=== PATIENT | female | born 1940 | race Caucasian/White ===

== ENCOUNTER 2024-04-25 14:27 | Inpatient (IN) | payer MEDICARE, BC, SELFPAY ==
[2024-04-25] VITALS (19 sets, daily range): BP systolic 99–119; BP diastolic 45–67; PULSE 54–85; RESP 14–24; TEMP 36–36.4; O2SAT 85–98; BMI 28.3; BMI 27.3
[2024-04-25 15:36] LABS: Basophils Percent Auto 0.2 % (0.0-3.0); Hematocrit 38.8 % (33.0-51.0); Hemoglobin* 12.8 gm/dL (12.0-16.0); Immature Granulocytes Pct Auto 1.1 %; Lymphocytes Percent Auto 2.9 % (20-44); Mean Corpuscular HGB Conc 33 gm/dL (32-36); Mean Corpuscular Hemoglobin 32 pg (26-34); Mean Corpuscular Volume 96 fL (80-100); Monocytes Percent Auto 4.9 % (0.0-11.0); Neutrophils Percent Auto 90.9 % (42.0-72.0); Platelet Count* 113 K/uL (140-440); RDW Coefficient of Variation % 12.2 % (11.5-15.5); Red Blood Count 4.05 m/uL (4.00-5.20); White Blood Count* 16.95 K/uL (4.50-11.00)
[2024-04-25 15:38] LABS: Lactate* 4.7 mmol/L (0.5-1.9)
[2024-04-25 15:44] LABS: Slide Review Reflex No
[2024-04-25 15:52] LABS: Albumin* 3.6 g/dL (3.3-5.0); Chloride* 101 mmol/L (96-114); Sodium* 134 mmol/L (135-149)
[2024-04-25 15:53] LABS: Potassium* 4.2 mmol/L (3.6-5.1)
[2024-04-25 15:55] LABS: Alkaline Phosphatase* 66 U/L (40-150); Anion Gap 11 mEq/L (7-15); Aspartate Amino Transferase* 234 U/L (12-35); Bilirubin Direct* 0.4 mg/dL (0.0-0.5); Bilirubin Total* 0.9 mg/dL (0.1-1.5); Blood Urea Nitrogen* 55 mg/dL (7-30); Carbon Dioxide* 22 mmol/L (20-32); Creatinine* 2.4 mg/dL (0.5-1.5); Est. Creatinine Clearance* 15.14; Estimated Glomerular Filt Rate 19 ml/min; Total Protein* 6.3 g/dL (6.0-8.3)
[2024-04-25 15:56] LABS: Alanine Aminotransferase* 46 U/L (4-35); Calcium* 9.1 mg/dL (8.4-10.6); Glucose* 147 mg/dL (60-115); Magnesium* 1.9 mg/dL (1.5-2.6)
--- NOTE | 2024-04-25 16:04 | CRLHL7_ITS ---
For Patients: As a result of the Century Cures Act, medical imaging exams and procedure reports are released immediately into your electronic medical record. You may view this report before your referring provider. If you have questions, please contact your health care provider. Indication: SEPSIS Technique: CT chest/abdomen/pelvis without IV contrast Comparison: None Findings: Chest: No thyroid nodules. No thoracic lymphadenopathy. The heart is normal in size. No pericardial effusion. Coronary artery calcifications and aortic valve and aortic and mitral annular calcifications. The thoracic aorta and pulmonary artery are normal in caliber. There is no focal airspace consolidation, pleural effusion, or pneumothorax. Trace dependent and bibasilar linear atelectatic changes. Subpleural 7 millimeter pulmonary nodule in the left lower lobe. No emphysematous or fibrotic changes. The airways are clear. Abdomen/pelvis: Well-circumscribed low-density left hepatic lesion measuring 1.7 centimeters, incompletely characterized on this exam, but likely a simple cyst. The gallbladder and biliary system are unremarkable. The spleen is unremarkable. The pancreas is without acute abnormality. Faint region of decreased attenuation in the pancreatic head/uncinate process (series number 2, image 108) measuring approximately 1.8 centimeters, incompletely characterized on this exam. No adrenal nodules. The kidneys are atrophic. Exophytic low-density lesion in the left kidney measuring approximately 1.6 centimeters (image 101), incompletely characterized on this exam. No renal calculi or hydroureteronephrosis. The uterus is unremarkable in appearance. No suspicious adnexal lesions. Moderate sized hiatal hernia. No evidence of bowel obstruction. There is questionable mild diffuse circumferential wall thickening of the rectum, which can be seen with proctitis; otherwise, no evidence of bowel inflammation throughout the remainder of the exam. No free fluid or free air. No abdominopelvic lymphadenopathy. No abdominal aortic aneurysm. Moderate calcific atherosclerosis of the aortoiliac system and its branches. Periuterine vascular calcifications. Pelvic phleboliths. Soft tissue/musculoskeletal: Soft tissues are without acute abnormality. Tiny fat containing umbilical hernia. No acute fracture or malalignment. Multilevel degenerative changes of the spine. No suspicious osseous lesions. Impression: 1. Questionable mild circumferential wall thickening of the rectum, which can be seen with proctitis; otherwise, no evidence of bowel inflammation throughout the remainder of the exam. 2. No free fluid or free air. 3. No CT evidence of an acute process involving the thorax. 4. Faint region of decreased attenuation in the pancreatic head/uncinate process (series number 2, image 108) measuring approximately 1.8 centimeters, and an exophytic low-density lesion in the left kidney measuring approximately 1.6 centimeters, both incompletely characterized on this exam. Recommend correlation with prior imaging if available; otherwise, recommend outpatient CT with pancreatic/renal protocol for further assessment. 5. Subpleural 7 millimeter pulmonary nodule in the left lower lobe, to correlate with prior imaging if available; otherwise, recommend repeat CT chest in 6-12 months. Please note that all CT scans at this facility use dose modulation, iterative reconstruction, and/or weight-based dosing when appropriate to reduce radiation dose to as low as reasonably achievable. Dictated by Moe Galloway MD @ 04/25/2024 5:01:03 PM (Electronically Signed)
[2024-04-25 16:13] LABS: Troponin I* 2.41 ng/mL (0.01-0.04)
--- NOTE | 2024-04-25 16:14 | ED.NURSE ---
Critical troponin of 2.4, MD aware.
--- NOTE | 2024-04-25 16:19 | ED.GENADULT ---
HPI - General Adult General Chief complaint: Weakness Stated complaint: Weakness, slurred speech Time Seen by Provider: 04/25/24 14:44 Source: patient Mode of arrival: ambulatory Limitations: no limitations History of Present Illness HPI narrative: 84-year-old female presenting today complaining of weakness. Patient states that since Keysha she has been feeling weaker than normal. Last night she could not get out of her recliner and required assistance from her son who she lives with. This is very unusual for her. She states that for the last 3 days she has been having cramping in both elbows and both knees. This comes and goes. She denies any fevers or chills. She states that she has had very little appetite for the last 3 days. She denies chest pain, abdominal pain or shortness of breath. She denies headache. She denies of focal neurologic deficit. She states that her children told her that she was ?out of it with increased confusion. Patient states that she does not feel increased confusion. She denies changes in speech. She did denies word-finding difficulty. She denies changes in her vision or hearing. She has a walker at home which she has been using but feels that does require more effort on her part than normal. She denies diarrhea or constipation. She denies urinary symptoms such as increased frequency, urgency or dysuria. She denies any skin rashes. Past medical history significant for hypertension, hyperlipidemia, impaired fasting glucose.. Patient takes atenolol and lisinopril. Related Data Home Medications ?Medication ?Instructions ?Recorded ?Confirmed atenolol 50 mg tablet 50 mg PO DAILY 04/25/24 04/25/24 lisinopril 20 mg tablet 20 mg PO DAILY 04/25/24 04/25/24 Allergies Allergy/AdvReac Type Severity Reaction Status Date / Time No Known Drug Allergies Allergy Verified 04/25/24 16:12 Review of Systems Status of ROS: Reports: 10 or more systems reviewed and unremarkable except as noted in History and below [facility] Medical History (Updated 04/26/24 @ 11:09 by Emmy Jameson PA-C) Overweight ?E66.3 - Overweight (ICD-10) Hyperlipidemia ?E78.5 - Hyperlipidemia, unspecified (ICD-10) Impaired fasting glucose ?R73.01 - Impaired fasting glucose (ICD-10) Essential hypertension ?I10 - Essential (primary) hypertension (ICD-10) Ulcerative colitis ?K51.90 - Ulcerative colitis, unspecified, without complications (ICD-10) Surgical History Status post colonoscopy ?Z98.890 - Other specified postprocedural states (ICD-10) Status post tubal ligation ?Z98.51 - Tubal ligation status (ICD-10) S/P tonsillectomy ?Z90.89 - Acquired absence of other organs (ICD-10) Status post cataract extraction ?Z98.49 - Cataract extraction status, unspecified eye (ICD-10) Family History Sister Breast cancer Osteoporosis Mother High blood pressure Social History What is your current living situation?: I presently have a place to live Problems where you live: no known problems Problems where you live details: none In the past 12 months, utilities in danger of being shut off: no In past 12 months, lack of transportation kept you from medical appts, meetings, work, or getting things needed for daily living: no In the past 12 mos, have been you worried that your food would run out before you had money to buy more?: never true In the past 12 mos, the food you bought just didn't last and you didn't have money to buy more?: never true Highest level of school completed/degree received: high school graduate Smoking Status: Never smoker Do you use any of these nicotine containing products: None Second hand tobacco smoke exposure: Yes How often do you have a drink containing alcohol: monthly or less AUDIT-C Alcohol total score: 1 Non-prescribed substance use: denies use Caffeine: Yes (1 cup of coffee a day) How often does anyone, including family, friends and others, physically hurt you: never How often does anyone, including family, friends and others, insult or talk down to you: never How often does anyone, including family, friends and others, threaten you with harm: never How often does anyone, including family, friends and others, scream or curse at you: never service: No Exam Narrative: Exam Narrative: Elderly, well-developed patient in no acute distress. Alert and oriented. Answers questions appropriately. Mood and affect are appropriate. Thoughts are goal oriented and rational. No tangential or magical thinking noted. Patient speaks in full sentences without needing to catch her breath. HEENT: Normocephalic atraumatic. Pupils are equally round reactive to light. Extraocular muscles are intact. Conjunctivae are moist without any icterus noted. Moist mucous membranes. Posterior pharynx is normal. Neck is soft without any lymphadenopathy or thyromegaly. No masses are appreciated. Cardiovascular: Heart is regular rate and rhythm S1 and S2 are present without any murmurs. Lungs: Clear to auscultation bilaterally no wheezes rhonchi or rales are appreciated. Patient takes deep breaths without any discomfort. Abdomen: Soft and nontender nondistended with normal bowel sounds. Extremities: Bilateral lower extremities are without edema. Skin: Well perfused without any obvious rashes. Const: Vital Signs, click to edit/add: Vital Signs - 24 hr 04/25/24 14:40 04/25/24 15:35 04/25/24 15:43 Temperature 97.3 F L Pulse Rate 58 L Pulse Rate [Pulse Oximeter] 85 Respiratory Rate 18 19 Blood Pressure 116/60 Blood Pressure [Le ft Upper Arm] 102/67 Pulse Oximetry 92 96 96 Oxygen Delivery Me thod Room Air Room Air 04/25/24 15:46 04/25/24 16:00 04/25/24 16:02 Temperature Pulse Rate 67 59 L 54 L Pulse Rate [Pulse Oximeter] Respiratory Rate 14 Blood Pressure 110/45 L Blood Pressure [Le ft Upper Arm] Pulse Oximetry 98 96 94 Oxygen Delivery Me thod Room Air 04/25/24 16:31 04/25/24 16:32 Temperature Pulse Rate Pulse Rate [Pulse Oximeter] Respiratory Rate Blood Pressure 102/54 L 103/51 L Blood Pressure [Le ft Upper Arm] Pulse Oximetry Oxygen Delivery Me thod Course Course ED Course: EKG, read by me, shows normal sinus rhythm with a prolonged QT, pulse 69. With some BC shows an elevated white cell count almost 17,000, platelet count is 113. Sodium slightly low 134, normal potassium. BUN and creatinine elevated at 55 and 2.4 respectively. Baseline creatinine around 1. Lactate elevated at 4.7. LFTs elevated with an AST of 234 an ALT of 46. Normal alkaline phosphatase. Troponin is markedly elevated at 2.41. CK is markedly elevated. BNP is markedly elevated. Chest, abdomen, pelvis CT without any clear reason for her symptoms. Incidental findings include lesions of the pancreas, kidneys and the pulmonary nodule. All discussed with the patient. At this time patient is already received 500 mL of normal saline. Will start another 500 mL over an hour. Fluid resuscitation is slow because of patient's age, elevated BNP and concern for fluid overload. Unclear what her ejection fraction is. She is hemodynamically stable at this time and mentating well. Blood cultures were also drawn. Patient will be started on vancomycin and Zosyn. Mclean catheter were also be placed as patient has not had any urine output since she has been here. Discussed patient with Dr. Owens who accepts the patient for admission. Vital Signs Vital signs: Initial Vital Signs Temperature 97.3 F L 04/25/24 14:40 Temperature Source Temporal Artery Scan 04/25/24 14:40 Pulse Rate 85 04/25/24 14:40 Respiratory Rate 18 04/25/24 14:40 Blood Pressure 102/67 04/25/24 14:40 Blood Pressure Mean 78 04/25/24 14:40 Pulse Oximetry 92 04/25/24 14:40 Oxygen Delivery Method Room Air 04/25/24 14:40 Vital Signs Temperature 97.3 F L 04/25/24 14:40 Pulse Rate 85 04/25/24 14:40 Respiratory Rate 18 04/25/24 14:40 Blood Pressure 102/67 04/25/24 14:40 Pulse Oximetry 92 04/25/24 14:40 Oxygen Delivery Method Room Air 04/25/24 14:40 Temperature 97.7 F 04/26/24 15:01 Pulse Rate 64 04/26/24 15:29 Respiratory Rate 20 04/26/24 15:01 Blood Pressure 127/68 04/26/24 15:01 Pulse Oximetry 98 04/26/24 15:01 Oxygen Delivery Method Room Air 04/26/24 15:01 Medications Administered Medications: Generic Name Dose Route Start Last Admin Trade Name Freq PRN Reason Stop Dose Admin Acetaminophen 650 mg 04/25/24 18:31 04/26/24 20:07 Acetaminophen 325 Mg Tablet PO 650 mg Q6H PRN Administration Sodium Chloride 1,000 mls @ 125 mls/hr 04/25/24 18:30 04/26/24 20:20 0.9 % Sodium Chloride 1000 Ml IV 125 mls/hr .Q8H SIN Administration Piperacillin Sod/Tazobactam 100 mls @ 200 mls/hr 04/26/24 02:00 04/26/24 18:33 Sod 2.25 gm/ Sodium Chloride IVPB Infused Q8H SIN Infusion Melatonin 3 mg 04/25/24 18:31 04/26/24 20:07 Melatonin 3 Mg Tablet PO 3 mg HS PRN Administration Oxycodone HCl 2.5 mg 04/25/24 18:31 04/26/24 20:07 Oxycodone 5 Mg Tablet PO 2.5 mg Q4H PRN Administration Pain Sodium Chloride 5 ml 04/25/24 21:00 04/26/24 08:59 Sodium Chloride 0.9 % (Flush) 10 Ml Syringe IVF Not Given BID SIN Discontinued Medications Generic Name Dose Route Start Last Admin Trade Name Freq PRN Reason Stop Dose Admin Sodium Chloride 500 mls @ 500 mls/hr 04/25/24 15:07 04/25/24 20:28 0.9 % Sodium Chloride 500 Ml IV 04/25/24 16:06 Infused .Q1H ONE Infusion Sodium Chloride 1,000 mls @ 500 mls/hr 04/25/24 17:08 04/25/24 21:16 0.9 % Sodium Chloride 1000 Ml IV 04/25/24 19:07 Infused .Q2H SIN Infusion Vancomycin/PEG/NADA/Lysine/Water 1.5 gm in 300 mls @ 200 mls/hr 04/25/24 18:30 04/25/24 21:49 Vancomycin 1.5 Gm/300 Ml IVPB 04/25/24 19:59 Infused ONCE ONE Infusion Protocol Piperacillin Sod/Tazobactam 100 mls @ 200 mls/hr 04/25/24 18:30 04/25/24 20:27 Sod 3.375 gm/ Sodium Chloride IVPB 04/25/24 18:59 Infused ONCE ONE Infusion Medical Decision Making MDM Narrative Medical decision making narrative: 84-year-old female with sepsis of unclear etiology. Patient also presents with acute renal failure, likely cardiac demand ischemia. Patient will be admitted at this time. Lab Data Lab results reviewed: Yes I reviewed the patient's lab results Labs: Lab Results 04/25/24 04/25/2424 Range/Units 15:08 15:30 17:40 WBC 16.95 H (4.50-11.00) K/uL RBC 4.05 (4.00-5.20) m/uL Hgb 12.8 (12.0-16.0) gm/dL Hct 38.8 (33.0-51.0) % MCV 96 (80-100) fL MCH 32 (26-34) pg MCHC 33 (32-36) gm/dL RDW Coeff of Jayla 12.2 (11.5-15.5) % Plt Count 113 L (140-440) K/uL Neut % (Auto) 90.9 H (42.0-72.0) % Lymph % (Auto) 2.9 L (20-44) % [place] % (Auto) 4.9 (0.0-11.0) % Eos % (Auto) 0.0 (0.0-7.0) % Baso % (Auto) 0.2 (0.0-3.0) % Neut # (Auto) 15.40 H (1.7-7.0) K/uL Lymph # (Auto) 0.50 L (0.90-2.90) K/uL [place] # (Auto) 0.80 (0.00-0.90) K/UL Eos # (Auto) 0.00 (0.00-0.50) K/uL Baso # (Auto) 0.00 (0.00-0.30) K/uL Abs Immat Gran (auto) 0.20 (0.00-0.30) K/uL Imm/Tot Granulo (auto) 1.1 % ESR 49 H (2-20) mm/hr Sodium 134 L (135-149) mmol/L Potassium 4.2 (3.6-5.1) mmol/L Chloride 101 (96-114) mmol/L Carbon Dioxide 22 (20-32) mmol/L Anion Gap 11 (7-15) mEq/L BUN 55 H (7-30) mg/dL Creatinine 2.4 H (0.5-1.5) mg/dL Estimated Creat Clear 15.14 Estimated GFR 19 ml/min Glucose 147 H (60-115) mg/dL Lactate 4.7 H* (0.5-1.9) mmol/L Calcium 9.1 (8.4-10.6) mg/dL Magnesium 1.9 (1.5-2.6) mg/dL Total Bilirubin 0.9 (0.1-1.5) mg/dL Direct Bilirubin 0.4 (0.0-0.5) mg/dL AST 234 H (12-35) U/L ALT 46 H (4-35) U/L Alkaline Phosphatase 66 (40-150) U/L Total Creatine Kinase 21694 H (41-117) U/L Troponin I 2.41 H* (0.01-0.04) ng/mL C-Reactive Protein 33.4 H (0.5-1.0) mg/dL NT-Pro-B Natriuret Pep 95360 pg/mL Total Protein 6.3 (6.0-8.3) g/dL Albumin 3.6 (3.3-5.0) g/dL TSH 2.900 (0.270-4.20) uIU/mL Urine Color Yellow (Yellow) Urine Appearance Clear (Clear) Urine pH 5.5 (5.0-8.5) Ur Specific [place] 1.025 (1.000-1.030) Urine Protein 2+ A (Negative) Urine Glucose (UA) Negative (Negative) Urine Ketones Negative (Negative) Urine Blood 3+ A (Negative) Urine Nitrite Positive A (Negative) Urine Bilirubin 1+ A (Negative) Urine Urobilinogen 1.0 (0.2-1.0) Ur Leukocyte Esterase 3+ A (Negative) Urine RBC 0-2 (0-2) Urine WBC 25-50 A (0-5) Urine WBC Clumps Few A (None) Ur Squamous Epith Cells None (None-Few) Amorphous Sediment Moderate A (None) Urine Bacteria Moderate A (None) SARS-CoV-2 (PCR) Negative SARS-CoV-2 (Negative) Influenza Type A (PCR) Negative PCR FLU A (Negative) Influenza Type B (PCR) Negative PCR FLU B (Negative) RSV (PCR) Negative PCR RSV (Negative) Imaging Data CT Chest/Ab/Pelvis: Attestation: I have reviewed the pertinent imaging results. Radiologist's impression: CT chest/abdomen/pelvis without IV contrast Comparison: None Findings: Chest: No thyroid nodules. No thoracic lymphadenopathy. The heart is normal in size. No pericardial effusion. Coronary artery calcifications and aortic valve and aortic and mitral annular calcifications. The thoracic aorta and pulmonary artery are normal in caliber. There is no focal airspace consolidation, pleural effusion, or pneumothorax. Trace dependent and bibasilar linear atelectatic changes. Subpleural 7 millimeter pulmonary nodule in the left lower lobe. No emphysematous or fibrotic changes. The airways are clear. Abdomen/pelvis: Well-circumscribed low-density left hepatic lesion measuring 1.7 centimeters, incompletely characterized on this exam, but likely a simple cyst. The gallbladder and biliary system are unremarkable. The spleen is unremarkable. The pancreas is without acute abnormality. Faint region of decreased attenuation in the pancreatic head/uncinate process (series number 2, image 108) measuring approximately 1.8 centimeters, incompletely characterized on this exam. No adrenal nodules. The kidneys are atrophic. Exophytic low-density lesion in the left kidney measuring approximately 1.6 centimeters (image 101), incompletely characterized on this exam. No renal calculi or hydroureteronephrosis. The uterus is unremarkable in appearance. No suspicious adnexal lesions. Moderate sized hiatal hernia. No evidence of bowel obstruction. There is questionable mild diffuse circumferential wall thickening of the rectum, which can be seen with proctitis; otherwise, no evidence of bowel inflammation throughout the remainder of the exam. No free fluid or free air. No abdominopelvic lymphadenopathy. No abdominal aortic aneurysm. Moderate calcific atherosclerosis of the aortoiliac system and its branches. Periuterine vascular calcifications. Pelvic phleboliths. Soft tissue/musculoskeletal: Soft tissues are without acute abnormality. Tiny fat containing umbilical hernia. No acute fracture or malalignment. Multilevel degenerative changes of the spine. No suspicious osseous lesions. Impression: 1. Questionable mild circumferential wall thickening of the rectum, which can be seen with proctitis; otherwise, no evidence of bowel inflammation throughout the remainder of the exam. 2. No free fluid or free air. 3. No CT evidence of an acute process involving the thorax. 4. Faint region of decreased attenuation in the pancreatic head/uncinate process (series number 2, image 108) measuring approximately 1.8 centimeters, and an exophytic low-density lesion in the left kidney measuring approximately 1.6 centimeters, both incompletely characterized on this exam. Recommend correlation with prior imaging if available; otherwise, recommend outpatient CT with pancreatic/renal protocol for further assessment. 5. Subpleural 7 millimeter pulmonary nodule in the left lower lobe, to correlate with prior imaging if available; otherwise, recommend repeat CT chest in 6-12 months. ECG Data Attestation: I personally reviewed and interpreted this ECG as follows: Discharge Plan Discharge Clinical Impression: Sepsis, Demand ischemia, Acute renal failure Patient Disposition: Admitted As Observation Condition: Guarded
[2024-04-25 16:28] LABS: NT Pro B Type NatriureticPept* 16800 pg/mL
[2024-04-25 16:41] LABS: Creatine Kinase* 12634 U/L (41-117)
[2024-04-25] MEDS: 0.9 % SODIUM CHLORIDE 500 ML 500 ML IV (16:52)
[2024-04-25 16:59] LABS: Erythrocyte SedimentationRate* 49 mm/hr (2-20)
[2024-04-25 17:16] LABS: PCR FLU A Negative PCR FLU A (Negative); PCR FLU B Negative PCR FLU B (Negative); PCR RSV Negative PCR RSV (Negative); SARS PCR* Negative SARS-CoV-2 (Negative)
[2024-04-25 17:48] LABS: Appearance Urine Clear (Clear); Bilirubin Urine 1+ (Negative); Blood Urine 3+ (Negative); Color Urine Yellow (Yellow); Glucose Urine Negative (Negative); Ketones Urine Negative (Negative); Leukocyte Esterase Urine 3+ (Negative); Nitrite Urine Positive (Negative); Protein Urine 2+ (Negative); Specific Gravity Urine 1.025 (1.000-1.030); pH Urine 5.5 (5.0-8.5)
[2024-04-25 18:13] LABS: Amorphous Sediment Urine Moderate; Bacteria Urine Moderate; RBC Urine 0-2 (0-2); WBC Clumps Urine Few; WBC Urine 25-50 (0-5)
--- NOTE | 2024-04-25 18:34 | PM.IMHP1 ---
Hospitalist- H&P: HPI History of Present Illness Date Seen: 04/25/24 Chief complaint: Weakness Narrative: Alley León is a 84 year old woman presents to the emergency department accompanied by her son today with complaint of increased weakness. She indicates that for the last 3 days she has been gradually feeling increasingly weak. This has progressed such that last night she was able to get out of her recliner without assistance. Has been having more cramping of her lower extremities as well. Denies fevers, rigors, diaphoresis. Denies dysuria, urgency, frequency, hematuria. Denies diarrhea. Denies any skin rashes or ulcers or lesions. Needed to get up to go to the bathroom earlier today but was too weak to get out of the recliner. Slid out of the recliner to the floor. Attempted to crawl to the bathroom which is only roughly 15-20 feet away. Claims that she was on the floor for about 2 hours trying to reach the bathroom but was too weak to the reach it. About 2 hours after she slid herself out of the recliner her son came home from work. After conferring with her son he decided to bring her in for further assessment. Denies any trauma or injury. Denies loss of consciousness or syncope. Denies nausea or vomiting. Denies chest heaviness, pressure, tightness, or pain. Denies dyspnea at rest, paroxysmal nocturnal dyspnea, orthopnea. Denies cough or URI symptoms. Denies confusion. Has been requiring the use of her walker more recently due to the increased weakness. Review of Systems Status of ROS: Reports: 10 or more systems reviewed and unremarkable except as noted in History and below Narrative: As noted above. Additionally describes a sense of myalgias and arthralgias of bilateral lower extremities for the last 24 hours. Denies focal motor neurologic deficits. No recent travel, trauma, or blood loss of any sort. Designates her son, Shlomo, as her healthcare spokes person in the event she is not able to speak on her own behalf in regard to her health care. Also she requests DNR DNI resuscitation status in the event of cardiopulmonary demise. [facility] Medical History Overweight ?E66.3 - Overweight (ICD-10) Hyperlipidemia ?E78.5 - Hyperlipidemia, unspecified (ICD-10) Impaired fasting glucose ?R73.01 - Impaired fasting glucose (ICD-10) Essential hypertension ?I10 - Essential (primary) hypertension (ICD-10) Ulcerative colitis ?K51.90 - Ulcerative colitis, unspecified, without complications (ICD-10) Surgical History Status post colonoscopy ?Z98.890 - Other specified postprocedural states (ICD-10) Status post tubal ligation ?Z98.51 - Tubal ligation status (ICD-10) S/P tonsillectomy ?Z90.89 - Acquired absence of other organs (ICD-10) Status post cataract extraction ?Z98.49 - Cataract extraction status, unspecified eye (ICD-10) Family History Sister Breast cancer Osteoporosis Mother High blood pressure Social History What is your current living situation?: I presently have a place to live Problems where you live: no known problems Problems where you live details: none In the past 12 months, utilities in danger of being shut off: no In past 12 months, lack of transportation kept you from medical appts, meetings, work, or getting things needed for daily living: no In the past 12 mos, have been you worried that your food would run out before you had money to buy more?: never true In the past 12 mos, the food you bought just didn't last and you didn't have money to buy more?: never true Highest level of school completed/degree received: high school graduate Smoking Status: Never smoker Do you use any of these nicotine containing products: None Second hand tobacco smoke exposure: Yes How often do you have a drink containing alcohol: monthly or less AUDIT-C Alcohol total score: 1 Non-prescribed substance use: denies use Caffeine: Yes (1 cup of coffee a day) How often does anyone, including family, friends and others, physically hurt you: never How often does anyone, including family, friends and others, insult or talk down to you: never How often does anyone, including family, friends and others, threaten you with harm: never How often does anyone, including family, friends and others, scream or curse at you: never service: No Meds Home Medications and Allergies Home Medications ?Medication ?Instructions ?Recorded ?Confirmed ?Type atenolol 50 mg tablet 50 mg PO DAILY 04/25/24 04/25/24 History lisinopril 20 mg tablet 20 mg PO DAILY 04/25/24 04/25/24 History Allergies Allergy/AdvReac Type Severity Reaction Status Date / Time No Known Drug Allergies Allergy Verified 04/25/24 16:12 Exam Narrative: Exam Narrative: Examined patient in the emergency department. Appears comfortable. Vision and hearing are adequate. Alert and oriented x3. Friendly and cooperative. External auditory canals and tympanic membranes are normal. Midline nasal septum. Dentition fair repair. Dry buccal mucosa. No icterus or conjunctival injection. Conjugate gaze. Cranial nerves 3 through 12 grossly normal. No focal motor neurologic deficits. Generalize lower extremity weakness. Midline trachea. Neck is supple. No head neck lymphadenopathy. Lungs are clear to auscultation without wheezing, rhonchi, rales. Chest wall excursions are full. No CVA tenderness. Heart tones with regular rhythm, normal S1-S2. No gallops or rubs. Systolic murmur. PMI not laterally displaced. Abdomen with active bowel sounds, soft, nontender. Trace lower extremity edema. Urine is cream colored. Positive nitrate. Positive leukocyte esterase. Positive white blood cells. Const: Vital Signs, click to edit/add: Vital Signs - 24 hr 04/25/24 14:40 04/25/24 15:35 04/25/24 15:43 Temperature 97.3 F L Pulse Rate 58 L Pulse Rate [Pulse Oximeter] 85 Respiratory Rate 18 19 Blood Pressure 116/60 Blood Pressure [Le ft Arm] Blood Pressure [Le ft Upper Arm] 102/67 Pulse Oximetry 92 96 96 Oxygen Delivery Me thod Room Air Room Air 04/25/24 15:46 04/25/24 16:00 04/25/24 16:02 Temperature Pulse Rate 67 59 L 54 L Pulse Rate [Pulse Oximeter] Respiratory Rate 14 Blood Pressure 110/45 L Blood Pressure [Le ft Arm] Blood Pressure [Le ft Upper Arm] Pulse Oximetry 98 96 94 Oxygen Delivery Me thod Room Air 04/25/24 16:31 04/25/24 16:32 04/25/24 17:01 Temperature Pulse Rate Pulse Rate [Pulse Oximeter] Respiratory Rate Blood Pressure 102/54 L 103/51 L 101/51 L Blood Pressure [Le ft Arm] Blood Pressure [Le ft Upper Arm] Pulse Oximetry Oxygen Delivery Me thod 04/25/24 17:07 04/25/24 17:15 04/25/24 17:30 Temperature Pulse Rate 60 67 69 Pulse Rate [Pulse Oximeter] Respiratory Rate Blood Pressure Blood Pressure [Le ft Arm] Blood Pressure [Le ft Upper Arm] Pulse Oximetry 88 85 L 90 Oxygen Delivery Me thod 04/25/24 17:32 04/25/24 17:45 04/25/24 18:00 Temperature Pulse Rate 67 69 67 Pulse Rate [Pulse Oximeter] Respiratory Rate Blood Pressure 99/63 Blood Pressure [Le ft Arm] Blood Pressure [Le ft Upper Arm] Pulse Oximetry [address] 04/25/24 18:16 Temperature 97 F L Pulse Rate Pulse Rate [Pulse Oximeter] 61 Respiratory Rate 22 Blood Pressure Blood Pressure [Le ft Arm] 100/57 L Blood Pressure [Le ft Upper Arm] Pulse Oximetry [address] [facility] Hospitalist - H&P: Result Labs Labs: Short CBC 04/25/24 Range/Units 15:30 WBC 16.95 H (4.50-11.00) K/uL Hgb 12.8 (12.0-16.0) gm/dL Hct 38.8 (33.0-51.0) % Plt Count 113 L (140-440) K/uL BMP 04/25/24 15:30 Sodium 134 L Potassium 4.2 Chloride 101 Carbon Dioxide 22 BUN 55 H Creatinine 2.4 H Glucose 147 H Calcium 9.1 Cardiac Enzymes 04/25/24 Range/Units 15:30 Total Creatine Kinase 85472 H (41-117) U/L Troponin I 2.41 H* (0.01-0.04) ng/mL Liver Function 04/25/24 Range/Units 15:30 Total Bilirubin 0.9 (0.1-1.5) mg/dL Direct Bilirubin 0.4 (0.0-0.5) mg/dL AST 234 H (12-35) U/L ALT 46 H (4-35) U/L Alkaline Phosphatase 66 (40-150) U/L Albumin 3.6 (3.3-5.0) g/dL Urine 04/25/24 Range/Units 17:40 Urine Color Yellow (Yellow) Urine Appearance Clear (Clear) Urine pH 5.5 (5.0-8.5) Ur Specific [place] 1.025 (1.000-1.030) Urine Protein 2+ A (Negative) Urine Glucose (UA) Negative (Negative) Imaging CT Chest/Ab/Pelvis: Radiologist's impression: 1. Questionable mild circumferential wall thickening of the rectum, which can be seen with proctitis; otherwise, no evidence of bowel inflammation throughout the remainder of the exam. 2. No free fluid or free air. 3. No CT evidence of an acute process involving the thorax. 4. Faint region of decreased attenuation in the pancreatic head/uncinate process (series number 2, image 108) measuring approximately 1.8 centimeters, and an exophytic low-density lesion in the left kidney measuring approximately 1.6 centimeters, both incompletely characterized on this exam. Recommend correlation with prior imaging if available; otherwise, recommend outpatient CT with pancreatic/renal protocol for further assessment. 5. Subpleural 7 millimeter pulmonary nodule in the left lower lobe, to correlate with prior imaging if available; otherwise, recommend repeat CT chest in 6-12 months. Assessment and Plan Assessment and plan (1) Sepsis: Problem comment: -SOFA score 5. NEWS2 score 4 P -blood culture and urine culture obtained -likely has UTI -IV fluids, single dose of piperacillin with tazobactam 3.375 g and single dose of vancomycin 1.5 g, then piperacillin 2.5 g IV q.8 hours to reflect decreased kidney function Status: Acute (2) Acute renal failure: Problem comment: -baseline creatinine of 1 with current creatinine 2.4 -likely due to acute rhabdomyolysis -avoid nephrotoxins -urethral catheter, IV fluids, monitor labs -urethral catheter in place, measure I's and O's, daily weight Status: Acute (3) UTI (urinary tract infection) with pyuria: Problem comment: -decreased urine output with cream colored urine with nitrites, leukocyte esterase, white blood cells -urine culture obtained -see entry under sepsis above Status: Acute (4) Demand ischemia: Problem comment: -trop I elevated at 0.14 with normal electrocardiogram without evidence of ischemia or infarction -monitor on tele, serial EKG, serial trop I, address likely culprit cause of sepsis and UTI Status: Acute (5) Rhabdomyolysis: Problem comment: -likely due to patient being on the floor for 2+ hours -IV fluids, monitor renal function panel Status: Acute (6) Lactic acidosis: Problem comment: -lactate elevated at 4.7 -IV fluids and monitor lactate -treat underlying UTI and sepsis Status: Acute (7) Leukocytosis: Problem comment: -WBC 17, monitor with treatment Status: Acute (8) Thrombocytopenia: Problem comment: -platelet count 113, monitor with treatment Status: Acute (9) Abnormal AST and ALT: Problem comment: -monitor with treatment Status: Acute Plan 1. Reviewed impression with patient and recommendations 2. Answered her questions 3. Patient agreeable with above stated plans and recommendations Total Time Spent Total Time Spent: 70 minutes
[2024-04-25] MEDS: PIPERACILLIN/TAZOBACTAM 3.375 GM in 0.9 % SODIUM CHLORIDE Mini-bag 100 ML IVPB (18:52)
[2024-04-25 19:05] LABS: C Reactive Protein* 33.4 mg/dL (0.5-1.0)
[2024-04-25] MEDS: 0.9 % SODIUM CHLORIDE 1000 ml 1,000 ML 500 ML IV ×2 (19:14→21:46)
--- NOTE | 2024-04-25 19:29 | PC.NURSE ---
End of Shift: Patient arrived to the floor 1815, alert and oriented x3. Patient vitally stable, lungs clear, BS WNL, IV currently running Abx and bolus. Patient denies pain on admission. Patient 1 assist/walker. Mclean intact and draining straw with sediment/cloudy. Patient given soup and jello to eat.
[2024-04-25] MEDS: VANCOMYCIN 1.5 GM/300 ML 1.5 GM/300 ML PIGGYBACK IVPB (20:05)
[2024-04-25 20:19] LABS: HCO3 VBG 23 mmol/L (21-28); Lactate* 2.6 mmol/L (0.5-1.9); PCO2 VBG 40 mmHG (40-50); PO2 VBG 44.5 mmHG (25-47); pH VBG 7.376 (7.32-7.43)
[2024-04-25 20:55] LABS: Troponin I* 1.23 ng/mL (0.01-0.04)
--- NOTE | 2024-04-25 23:38 | PC.NURSE ---
[id number]: Pt pleasant, alert, oriented and vitally stable. Pt has mosley cath in place, draining appropriately, though urine has a cloudy appearance and strong smell. Several attempts for a second IV were unsuccessful, staff attempted to wrap arms in warm blankets to stimulate veins with no success. Pt states there is pain with movement starting in elbows and radiating down to calf area. Pt in bed, appears to be resting, call light within reach. ?
[2024-04-26] VITALS (12 sets, daily range): BP systolic 101–138; BP diastolic 54–71; PULSE 60–82; RESP 14–20; TEMP 36.2–37; O2SAT 20–98
[2024-04-26] MEDS: PIPERACILLIN/TAZOBACTAM 2.25 GM in 0.9 % SODIUM CHLORIDE Mini-bag 100 ML IVPB ×3 (01:53→17:44)
[2024-04-26] MEDS: MELATONIN 3 MG TABLET PO ×2 (02:06→20:07)
[2024-04-26] MEDS: ACETAMINOPHEN 325 MG TABLET 650 MG PO ×4 (02:06→20:07)
[2024-04-26 07:01] LABS: HCO3 VBG 20 mmol/L (21-28); Lactate* 0.9 mmol/L (0.5-1.9); PCO2 VBG 34 mmHG (40-50); PO2 VBG 83.1 mmHG (25-47); pH VBG 7.368 (7.32-7.43)
--- NOTE | 2024-04-26 07:09 | PC.NURSE ---
End of shift [id number] ? Pt alert, oriented to self, time, place, and situation. Observed to sleep during majority of shift. Pt reported pain ?all over? but was unable to rate on 1-10 scale. Medication given per MAR with pt indicating tolerating pain and sleeping. Pt not up from bed during shift. Mclean catheter noted to be patent and draining. Tolerating RA and regular fluids. Appears to be resting comfortably in bed at end of shift with call light within reach. ?
[2024-04-26 07:13] LABS: Basophils Absolute Auto 0.01 K/uL (0.00-0.30); Basophils Percent Auto 0.1 % (0.0-3.0); Hematocrit 32.6 % (33.0-51.0); Hemoglobin* 10.6 gm/dL (12.0-16.0); Immature Granulocytes Abs Auto 0.08 K/uL (0.00-0.30); Immature Granulocytes Pct Auto 0.8 %; Lymphocytes Percent Auto 4.4 % (20-44); Mean Corpuscular HGB Conc 33 gm/dL (32-36); Mean Corpuscular Hemoglobin 32 pg (26-34); Mean Corpuscular Volume 97 fL (80-100); Monocytes Percent Auto 6.8 % (0.0-11.0); Neutrophils Percent Auto 87.9 % (42.0-72.0); Platelet Count* 89 K/uL (140-440); RDW Coefficient of Variation % 12.4 % (11.5-15.5); Red Blood Count 3.37 m/uL (4.00-5.20)
[2024-04-26 07:18] LABS: Slide Review Reflex No
[2024-04-26 07:29] LABS: Chloride* 108 mmol/L (96-114); Potassium* 3.7 mmol/L (3.6-5.1); Sodium* 134 mmol/L (135-149)
[2024-04-26 07:31] LABS: Cholesterol* 113 mg/dL (90-199)
[2024-04-26 07:32] LABS: Anion Gap 7 mEq/L (7-15); Blood Urea Nitrogen* 55 mg/dL (7-30); Carbon Dioxide* 19 mmol/L (20-32); Creatinine* 1.8 mg/dL (0.5-1.5); Est. Creatinine Clearance* 20.19; Estimated Glomerular Filt Rate 27 ml/min
[2024-04-26 07:33] LABS: Calcium* 7.6 mg/dL (8.4-10.6); Glucose* 105 mg/dL (60-115); HDL Cholesterol* 27 mg/dL (>=50); LDL Cholesterol Calculated 47 mg/dL (<100); Magnesium* 1.8 mg/dL (1.5-2.6); Phosphorus* 3.1 mg/dL (2.5-4.5); Triglycerides* 193 mg/dL (40-149)
[2024-04-26 07:43] LABS: NT Pro B Type NatriureticPept* 5920 pg/mL
[2024-04-26 07:44] LABS: Troponin I* 0.91 ng/mL (0.01-0.04)
--- NOTE | 2024-04-26 07:48 | P.IMPN_ITS ---
Progress Note: A&P Assessment and plan (1) Sepsis: Problem details: -SOFA score 5. NEWS2 score 4 P -blood culture x1 growing Gram-positive cocci in chains. Repeat BC ordered for 04/27. UC pending -likely has UTI -IV fluids, single dose of piperacillin with tazobactam 3.375 g and single dose of vancomycin 1.5 g, then piperacillin 2.5 g IV q.8 hours to reflect decreased kidney function -continue vancomycin, renally dosed, given positive blood culture x1 Status: Acute (2) Acute renal failure: Problem details: -baseline creatinine of 1 with current creatinine 2.4 -likely due to acute rhabdomyolysis -avoid nephrotoxins. Hold Lisinopril -urethral catheter, IV fluids, monitor labs -urethral catheter in place, measure I's and O's, daily weight Down trending, 1.8, continue to monitor Status: Acute (3) UTI (urinary tract infection) with pyuria: Problem details: -decreased urine output with cream colored urine with nitrites, leukocyte esterase, white blood cells -urine culture pending -continue Zosyn, renally dosed Status: Acute (4) Demand ischemia: Problem details: -trop I elevated at 2.41 with normal electrocardiogram without evidence of ischemia or infarction -monitor on tele, serial EKG, serial trop I, address likely culprit cause of sepsis and UTI -troponins 2.41 ->1.23 ->0.91. EKG remains NSR, QTC 501 -echocardiogram ordered Status: Acute (5) Rhabdomyolysis: Problem details: -likely due to patient being on the floor for 2+ hours -CK on admission 12,634 -> 5440 -IV fluids, monitor renal function panel Status: Acute (6) Lactic acidosis: Problem details: -lactate elevated at 4.7 -> 2.6 ->0.9 -IV fluids and monitor lactate -treat underlying UTI and sepsis Status: Resolved (7) Leukocytosis: Problem details: -WBC 17, monitor with treatment. Lactate normalized. CRP 33.4 -> 37.8 Improved to 10.3 Status: Resolved (8) Thrombocytopenia: Problem details: -platelet count 113 -> 89, monitor with treatment -SCDs for VTE PPX Status: Acute (9) Abnormal AST and ALT: Problem details: -monitor with treatment Status: Acute (10) Bacteremia: Problem details: BC growing gram + cocci in chains Continue Zosyn, restart vancomycin, renally dosed Repeat BC ordered for 04/27/2024 Status: Acute (11) Essential hypertension: Problem details: Pressures soft on admission in setting of sepsis Holding atenolol and lisinopril (ALKA) Status: Acute Plan Continue IV antibiotics and IVF for recent sepsis, ALKA, rhabdomyolysis. Following CBC, BMP, liver panel, CK, repeat BC ordered for tomorrow. Awaiting UC Time Spent With Patient Total time spent: Total time spent caring for the patient today was 55 minutes. This includes time spent for the visit reviewing the chart, time spent during the visit, time spent after the visit and documentation and planning in coordination of care. Subjective Date Seen: 04/26/24 Interval history: Patient is seen lying in bed this morning. Reports feeling much better. No events reported overnight. Has remained afebrile. Blood pressures remain soft but systolic > 100. Denies headache or dizziness. Denies chest pain or short ness of breath. Tolerating small amounts of orals without nausea vomiting. Lactate resolved. WBC trending down. CK trending down. Troponins trending down. BC x1 growing Gram-positive cocci in chains. UC pending. Exam Narrative: Exam Narrative: PHYSICAL EXAM General: Pleasant, conversant, NAD HEENT: Normocephalic, atraumatic, sclera white, EOMI, oral mucosa moist Cardiovascular: RRR, S1S2. No pitting edema Pulmonary: CTA bilaterally without rhonchi, rales, expiratory wheezes. No dyspnea on room air Abdominal: Soft, nondistended, NTTP Neurological: Alert, answering questions appropriately, cranial nerves intact, no focal findings Extremities: No gross joint deformity or swelling. AROMI. Neurovascularly intact Skin: Warm, dry. Const: Vital Signs, click to edit/add: Vital Signs - 24 hr 04/25/24 14:40 04/25/24 15:35 04/25/24 15:43 Temperature 97.3 F L Pulse Rate 58 L Pulse Rate [Apical ] Pulse Rate [Pulse Oximeter] 85 Respiratory Rate 18 19 Blood Pressure 116/60 Blood Pressure [Le ft Arm] Blood Pressure [Le ft Upper Arm] 102/67 Blood Pressure [Ri ght Arm] Pulse Oximetry 92 96 96 Oxygen Delivery Me thod Room Air Room Air 04/25/24 15:46 04/25/24 16:00 04/25/24 16:02 Temperature Pulse Rate 67 59 L 54 L Pulse Rate [Apical ] Pulse Rate [Pulse Oximeter] Respiratory Rate 14 Blood Pressure 110/45 L Blood Pressure [Le ft Arm] Blood Pressure [Le ft Upper Arm] Blood Pressure [Ri ght Arm] Pulse Oximetry 98 96 94 Oxygen Delivery Me thod Room Air 04/25/24 16:31 04/25/24 16:32 04/25/24 17:01 Temperature Pulse Rate Pulse Rate [Apical ] Pulse Rate [Pulse Oximeter] Respiratory Rate Blood Pressure 102/54 L 103/51 L 101/51 L Blood Pressure [Le ft Arm] Blood Pressure [Le ft Upper Arm] Blood Pressure [Ri ght Arm] Pulse Oximetry Oxygen Delivery Me thod 04/25/24 17:07 04/25/24 17:15 04/25/24 17:30 Temperature Pulse Rate 60 67 69 Pulse Rate [Apical ] Pulse Rate [Pulse Oximeter] Respiratory Rate Blood Pressure Blood Pressure [Le ft Arm] Blood Pressure [Le ft Upper Arm] Blood Pressure [Ri ght Arm] Pulse Oximetry 88 85 L 90 Oxygen Delivery Me thod 04/25/24 17:32 04/25/24 17:45 04/25/24 18:00 Temperature Pulse Rate 67 69 67 Pulse Rate [Apical ] Pulse Rate [Pulse Oximeter] Respiratory Rate Blood Pressure 99/63 Blood Pressure [Le ft Arm] Blood Pressure [Le ft Upper Arm] Blood Pressure [Ri ght Arm] Pulse Oximetry 90 97 92 Oxygen Delivery Me thod 04/25/24 18:16 04/25/24 18:58 04/25/24 19:00 Temperature 97 F L 96.8 F L Pulse Rate Pulse Rate [Apical ] 67 Pulse Rate [Pulse Oximeter] 61 Respiratory Rate 22 16 Blood Pressure Blood Pressure [Le ft Arm] 100/57 L 107/56 L Blood Pressure [Le ft Upper Arm] Blood Pressure [Ri ght Arm] Pulse Oximetry 96 97 98 Oxygen Delivery Me thod Room Air Room Air Room Air 04/25/24 23:31 04/26/24 02:18 04/26/24 02:23 Temperature 97.6 F Pulse Rate 82 Pulse Rate [Apical ] Pulse Rate [Pulse Oximeter] 71 Respiratory Rate 24 20 Blood Pressure Blood Pressure [Le ft Arm] 119/51 L Blood Pressure [Le ft Upper Arm] Blood Pressure [Ri ght Arm] Pulse Oximetry 97 98 Oxygen Delivery Me thod Room Air Room Air 04/26/24 02:32 04/26/24 05:27 04/26/24 07:29 Temperature 98.2 F 98.6 F Pulse Rate Pulse Rate [Apical ] Pulse Rate [Pulse Oximeter] 80 60 Respiratory Rate 18 20 Blood Pressure Blood Pressure [Le ft Arm] 138/64 Blood Pressure [Le ft Upper Arm] Blood Pressure [Ri ght Arm] 101/56 L Pulse Oximetry 98 96 Oxygen Delivery Me thod Room Air Room Air Labs Labs: Laboratory Results - last 24 hr 04/25/24 04/25/24 04/25/24 15:08 15:30 17:40 WBC 16.95 H RBC 4.05 Hgb 12.8 Hct 38.8 MCV 96 MCH 32 MCHC 33 RDW Coeff of Jayla 12.2 Plt Count 113 L Neut % (Auto) 90.9 H Lymph % (Auto) 2.9 L [place] % (Auto) 4.9 Eos % (Auto) 0.0 Baso % (Auto) 0.2 Neut # (Auto) 15.40 H Lymph # (Auto) 0.50 L [place] # (Auto) 0.80 Eos # (Auto) 0.00 Baso # (Auto) 0.00 Abs Immat Gran (auto) 0.20 Imm/Tot Granulo (auto) 1.1 ESR 49 H VBG pH VBG pCO2 VBG pO2 VBG HCO3 Sodium 134 L Potassium 4.2 Chloride 101 Carbon Dioxide 22 Anion Gap 11 BUN 55 H Creatinine 2.4 H Estimated Creat Clear 15.14 Estimated GFR 19 Glucose 147 H Lactate 4.7 H* Calcium 9.1 Phosphorus Magnesium 1.9 Total Bilirubin 0.9 Direct Bilirubin 0.4 AST 234 H ALT 46 H Alkaline Phosphatase 66 Total Creatine Kinase 22472 H Troponin I 2.41 H* C-Reactive Protein 33.4 H NT-Pro-B Natriuret Pep 30551 Total Protein 6.3 Albumin 3.6 Triglycerides Cholesterol LDL Cholesterol, Calc HDL Cholesterol TSH 2.900 Urine Color Yellow Urine Appearance Clear Urine pH 5.5 Ur Specific [place] 1.025 Urine Protein 2+ A Urine Glucose (UA) Negative Urine Ketones Negative Urine Blood 3+ A Urine Nitrite Positive A Urine Bilirubin 1+ A Urine Urobilinogen 1.0 Ur Leukocyte Esterase 3+ A Urine RBC 0-2 Urine WBC 25-50 A Urine WBC Clumps Few A Ur Squamous Epith Cells None Amorphous Sediment Moderate A Urine Bacteria Moderate A SARS-CoV-2 (PCR) Negative SARS-CoV-2 Influenza Type A (PCR) Negative PCR FLU A Influenza Type B (PCR) Negative PCR FLU B RSV (PCR) Negative PCR RSV 04/25/24 04/26/24 20:15 05:45 WBC 10.30 RBC 3.37 L Hgb 10.6 L Hct 32.6 L MCV 97 MCH 32 MCHC 33 RDW Coeff of [place]la 12.4 Plt Count 89 L Neut % (Auto) 87.9 H Lymph % (Auto) 4.4 L [place] % (Auto) 6.8 Eos % (Auto) 0.0 Baso % (Auto) 0.1 Neut # (Auto) 9.10 H Lymph # (Auto) 0.50 L [place] # (Auto) 0.70 Eos # (Auto) 0.00 Baso # (Auto) 0.01 Abs Immat Gran (auto) 0.08 Imm/Tot Granulo (auto) 0.8 ESR VBG pH 7.376 7.368 VBG pCO2 40 34 L VBG pO2 44.5 83.1 H VBG HCO3 23 20 L Sodium 134 L Potassium 3.7 Chloride 108 Carbon Dioxide 19 L Anion Gap 7 BUN 55 H Creatinine 1.8 H Estimated Creat Clear 20.19 Estimated GFR 27 Glucose 105 Lactate 2.6 H 0.9 Calcium 7.6 L Phosphorus 3.1 Magnesium 1.8 Total Bilirubin Direct Bilirubin AST ALT Alkaline Phosphatase Total Creatine Kinase Troponin I 1.23 H* 0.91 H* C-Reactive Protein NT-Pro-B Natriuret Pep 5920 Total Protein Albumin Triglycerides 193 H Cholesterol 113 LDL Cholesterol, Calc 47 HDL Cholesterol 27 L TSH Urine Color Urine Appearance Urine pH Ur Specific [place] Urine Protein Urine Glucose (UA) Urine Ketones Urine Blood Urine Nitrite Urine Bilirubin Urine Urobilinogen Ur Leukocyte Esterase Urine RBC Urine WBC Urine WBC Clumps Ur Squamous Epith Cells Amorphous Sediment Urine Bacteria SARS-CoV-2 (PCR) Influenza Type A (PCR) Influenza Type B (PCR) RSV (PCR)
[2024-04-26 08:23] LABS: C Reactive Protein* 37.8 mg/dL (0.5-1.0)
[2024-04-26 08:40] LABS: Creatine Kinase* 5440 U/L (41-117)
[2024-04-26] MEDS: 0.9 % SODIUM CHLORIDE 1000 ml 1,000 ML 125 ML IV ×2 (11:45→20:20)
[2024-04-26] MEDS: OXYCODONE 5 MG TABLET 2.5 MG PO ×2 (15:10→20:07)
--- NOTE | 2024-04-26 19:25 | PC.NURSE ---
End of Shift: Patient pleasant and cooperative, alert and oriented. Patient vitally stable, lungs clear, BS WNL, IV running NS at 125. Patient rates all over body pain 7-9/10, tylenol given x2 and oxy 2.5 given once. Patient is 1 assist/walker. Mclean intact and draining. Patient has been sleeping majority of the day, but has been up in chair x2. Patient tolerating regular diet, no BM.
[2024-04-27] VITALS (8 sets, daily range): BP systolic 114–142; BP diastolic 58–97; PULSE 65–76; RESP 16–20; TEMP 36.1–37; O2SAT 96–99
[2024-04-27] MEDS: OXYCODONE 5 MG TABLET 2.5 MG PO ×3 (00:41→22:34)
[2024-04-27] MEDS: ACETAMINOPHEN 325 MG TABLET 650 MG PO ×4 (01:50→22:35)
[2024-04-27] MEDS: PIPERACILLIN/TAZOBACTAM 2.25 GM in 0.9 % SODIUM CHLORIDE Mini-bag 100 ML IVPB ×3 (01:50→18:10)
[2024-04-27] MEDS: 0.9 % SODIUM CHLORIDE 1000 ml 1,000 ML 125 ML IV (04:50)
[2024-04-27 06:50] LABS: Basophils Absolute Auto 0.02 K/uL (0.00-0.30); Basophils Percent Auto 0.3 % (0.0-3.0); Eosinophils Absolute Auto 0.05 K/uL (0.00-0.50); Eosinophils Percent Auto 0.7 % (0.0-7.0); Hematocrit 32.3 % (33.0-51.0); Hemoglobin* 10.5 gm/dL (12.0-16.0); Immature Granulocytes Abs Auto 0.03 K/uL (0.00-0.30); Immature Granulocytes Pct Auto 0.4 %; Lymphocytes Percent Auto 10.5 % (20-44); Mean Corpuscular HGB Conc 33 gm/dL (32-36); Mean Corpuscular Hemoglobin 31 pg (26-34); Mean Corpuscular Volume 96 fL (80-100); Monocytes Percent Auto 9.1 % (0.0-11.0); Platelet Count* 84 K/uL (140-440); RDW Coefficient of Variation % 12.7 % (11.5-15.5); Red Blood Count 3.35 m/uL (4.00-5.20); White Blood Count* 7.62 K/uL (4.50-11.00)
--- NOTE | 2024-04-27 06:51 | PC.NURSE ---
End of shift [id number] ? Pt alert, oriented to self, time, place, and situation. Observed to sleep during majority of shift. Pt reported pain in R arm rated as 8/10. Medication given per MAR with pt indicating tolerating pain and sleeping. Transfer from chair to bed with walker/gait belt and standby assistance. Mclean catheter noted to be patent and draining. Tolerating RA and regular fluids. Appears to be resting comfortably in bed at end of shift with call light within reach. ?
[2024-04-27 06:53] LABS: Slide Review Reflex No
[2024-04-27 07:03] LABS: Albumin* 2.6 g/dL (3.3-5.0); Chloride* 110 mmol/L (96-114); Sodium* 136 mmol/L (135-149)
[2024-04-27 07:04] LABS: Potassium* 3.9 mmol/L (3.6-5.1)
[2024-04-27 07:06] LABS: Alanine Aminotransferase* 38 U/L (4-35); Alkaline Phosphatase* 59 U/L (40-150); Anion Gap 6 mEq/L (7-15); Aspartate Amino Transferase* 87 U/L (12-35); Bilirubin Direct* 0.3 mg/dL (0.0-0.5); Bilirubin Total* 0.5 mg/dL (0.1-1.5); Blood Urea Nitrogen* 46 mg/dL (7-30); Carbon Dioxide* 20 mmol/L (20-32); Creatinine* 1.3 mg/dL (0.5-1.5); Est. Creatinine Clearance* 27.95; Estimated Glomerular Filt Rate 40 ml/min; Glucose* 102 mg/dL (60-115); Total Protein* 5.2 g/dL (6.0-8.3)
[2024-04-27 07:07] LABS: Calcium* 7.8 mg/dL (8.4-10.6)
[2024-04-27 07:22] LABS: Creatine Kinase* 1097 U/L (41-117)
--- NOTE | 2024-04-27 09:49 | NUTR.NU ---
RDN with MD consult for miscellaneous. Patient admitted with sepsis, ALKA, and UTI positive. Past medical history includes but not limited to Overweight, Hyperlipidemia, Impaired fasting glucose, Essential hypertension, and Ulcerative colitis. Current weight 172 lb 8oz; height 5ft 5in; BMI 28.7 kg/m2. No weight history in EMR, however MST score reported no change in weight recently. Current diet is Regular. Meal intakes since admit 50% x2. No nutrition interventions at this time with good weight and adequate intakes. RDN will continue to monitor and follow-up prn.
[2024-04-27] MEDS: SODIUM CHLORIDE 0.9 % (FLUSH) 10 ML SYRINGE 5 ML IVF ×2 (10:40→20:16)
--- NOTE | 2024-04-27 12:35 | CRLHL7_ITS ---
For Patients: As a result of the Cures Act, medical imaging exams and procedure reports are released immediately into your electronic medical record. You may view this report before your referring provider. If you have questions, please contact your health care provider. INDICATION: Right-sided shoulder pain after crawling on the floor. TECHNIQUE: Two portable views of the right shoulder. FINDINGS: No acute fracture or dislocation. Degenerative change of the AC and less so glenohumeral joints. IMPRESSION: Degenerative change right shoulder. No acute fracture or dislocation. Dictated by Mihai Perrin MD @ 04/27/2024 2:27:31 PM (Electronically Signed)
--- NOTE | 2024-04-27 12:36 | PM.IMPN1 ---
Progress Note: A&P Assessment and plan (1) Sepsis: Problem details: -SOFA score 5. NEWS2 score 4 P -blood culture x1 growing Gram-positive cocci in chains. Repeat BC ordered for 04/27. UC growing > 100,000 gram-negative salvatore -likely has UTI -IV fluids, single dose of piperacillin with tazobactam 3.375 g and single dose of vancomycin 1.5 g, then piperacillin 2.5 g IV q.8 hours to reflect decreased kidney function -continue vancomycin, renally dosed, given positive blood culture x1 -group G strep isolated in 1st BC - sent to [facility] for sensitivities -repeat BC 04/27 pending Status: Resolved (2) Acute renal failure: Problem details: -baseline creatinine of 1 with current creatinine 2.4 -likely due to acute rhabdomyolysis -avoid nephrotoxins. Hold Lisinopril -resume 04/28 -urethral catheter, IV fluids, monitor labs -urethral catheter in place - discontinued, measure I's and O's, daily weight Down trending, 1.8 -> 1.3 Status: Resolved (3) UTI (urinary tract infection) with pyuria: Problem details: -decreased urine output with cream colored urine with nitrites, leukocyte esterase, white blood cells -urine culture growing > 100,000 gram-negative salvatore -continue Zosyn, renally dosed Status: Acute (4) Demand ischemia: Problem details: -trop I elevated at 2.41 with normal electrocardiogram without evidence of ischemia or infarction -monitor on tele, serial EKG, serial trop I, address likely culprit cause of sepsis and UTI -troponins 2.41 ->1.23 ->0.91. EKG remains NSR, QTC 501 -echocardiogram 04/26/24 Final Impressions: 1. Normal LV size, normal wall thickness, low normal global systolic function with an estimated EF of 65 - 70%. 2. Moderately enlarged left atrium. 3. Right ventricular cavity size is normal, global systolic RV function is normal. 4. The aortic valve is calcified and trileaflet, no stenosis and no regurgitation. 5. The mitral valve is normal, mild mitral regurgitation. 6. Normal estimated pulmonary pressures by tricuspid regurgitation velocity and right atrial pressure (29 mmHg plus RAP). Status: Acute (5) Rhabdomyolysis: Problem details: -likely due to patient being on the floor for 2+ hours -CK on admission 12,634 -> 5440 -> 1097 -IV fluids, monitor renal function panel Status: Acute (6) Lactic acidosis: Problem details: -lactate elevated at 4.7 -> 2.6 ->0.9 -IV fluids and monitor lactate -treat underlying UTI and sepsis Status: Resolved (7) Leukocytosis: Problem details: -WBC 17, monitor with treatment. Lactate normalized. CRP 33.4 -> 37.8 Improved to 10.3 Status: Resolved (8) Thrombocytopenia: Problem details: -platelet count 113 -> 89 -> 84, monitor with treatment -SCDs for VTE PPX Status: Acute (9) Abnormal AST and ALT: Problem details: -monitor with treatment and while on Tylenol - down trending Status: Acute (10) Bacteremia: Problem details: BC growing gram + cocci in chains. Group G strep isolated in BC - sent to [facility] for sensitivities Continue Zosyn, restart vancomycin, renally dosed Repeat BC 04/27/2024 pending Status: Acute (11) Essential hypertension: Problem details: Pressures soft on admission in setting of sepsis - improving, mildly hypertensive now Resume atenolol and lisinopril 04/28 Status: Acute (12) Shoulder pain, right: Problem details: Present on admission. 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 Pain with ROM Shoulder xray shows no acute fracture or dislocation. Degenerative changes of the AC and less so glenohumeral joints. Tylenol scheduled, lidocaine patch, cold compression as needed Status: Acute (13) Knee pain, right: Problem details: Present on admission. Believes it is from army crawling across floor at home. No fall. Able to bear weight Status: Acute Plan Continue IV antibiotics, awaiting BC/UC results and sensitivities Time Spent With Patient Total time spent: Total time spent caring for the patient today was 45 minutes. This includes time spent for the visit reviewing the chart, time spent during the visit, time spent after the visit and documentation and planning in coordination of care. Subjective Date Seen: 04/27/24 Interval history: Patient is seen with son at bedside. Denies headache or dizziness. Denies chest pain or shortness of breath. Tolerating orals without nausea or vomiting. Has remained afebrile. Has been working with therapies. Therapies note decreased range of motion in right upper extremity with pain. Distal strength intact. Patient tells me she has had pain in her right shoulder and right knee prior to arrival to the ED. She tells me she had to Army crawl across the floor to get to the bathroom and then laid on the floor until her son found her approximately 2 hours later. Exam Narrative: Exam Narrative: PHYSICAL EXAM General: Pleasant, conversant, NAD Cardiovascular: RRR, S1S2. No pitting edema Pulmonary: CTA bilaterally without rhonchi, rales, expiratory wheezes. No dyspnea on room air Neurological: Alert, answering questions appropriately, cranial nerves intact, no focal findings Extremities: RUE without erythema or swelling. Decreased AROM at shoulder in extension and abduction secondary to pain. Limited PROM secondary to pain. Pain with palpation over AC joint and bicep. No pain palpable or with range of motion of the elbow wrist or hand. Right knee tender over anterolateral aspect without swelling. Range of motion intact, able to weightbear. Neurovascularly intact Skin: Warm, dry. Const: Vital Signs, click to edit/add: Vital Signs - 24 hr 04/26/24 15:01 04/26/24 15:01 04/26/24 15:01 Temperature 97.7 F Pulse Rate Pulse Rate [Apical ] Pulse Rate [Pulse Oximeter] 64 64 Respiratory Rate 20 20 20 Blood Pressure [Le ft Arm] Blood Pressure [Ri ght Arm] 127/68 Pulse Oximetry 20 L 98 Oxygen Delivery Me thod Room Air Room Air 04/26/24 15:29 04/26/24 22:21 04/26/24 23:02 Temperature 97.2 F L Pulse Rate 64 62 Pulse Rate [Apical ] Pulse Rate [Pulse Oximeter] 66 Respiratory Rate 16 Blood Pressure [Le ft Arm] Blood Pressure [Ri ght Arm] 130/71 Pulse Oximetry 98 Oxygen Delivery Me thod Room Air 04/26/24 23:36 04/27/24 01:43 04/27/24 03:13 Temperature 97.9 F 97.0 F L Pulse Rate Pulse Rate [Apical ] Pulse Rate [Pulse Oximeter] 65 67 Respiratory Rate 16 20 Blood Pressure [Le ft Arm] Blood Pressure [Ri ght Arm] 126/58 L 114/65 Pulse Oximetry 98 97 99 Oxygen Delivery Me thod Room Air Room Air Room Air 04/27/24 07:00 04/27/24 07:00 04/27/24 07:00 Temperature 97.0 F L Pulse Rate Pulse Rate [Apical ] 67 Pulse Rate [Pulse Oximeter] 70 67 Respiratory Rate 20 20 20 Blood Pressure [Le ft Arm] 138/64 Blood Pressure [Ri ght Arm] 114/65 Pulse Oximetry 99 99 Oxygen Delivery Me thod Room Air Room Air 04/27/24 09:20 04/27/24 11:00 Temperature 97.2 F L Pulse Rate 72 Pulse Rate [Apical ] Pulse Rate [Pulse Oximeter] 76 Respiratory Rate 20 Blood Pressure [Le ft Arm] 142/88 H Blood Pressure [Ri ght Arm] Pulse Oximetry 98 Oxygen Delivery Me thod Room Air Labs Labs: Laboratory Results - last 24 hr 04/27/24 05:53 WBC 7.62 RBC 3.35 L Hgb 10.5 L Hct 32.3 L MCV 96 MCH 31 MCHC 33 RDW Coeff of Jayla 12.7 Plt Count 84 L Neut % (Auto) 79.0 H Lymph % (Auto) 10.5 L [place] % (Auto) 9.1 Eos % (Auto) 0.7 Baso % (Auto) 0.3 Neut # (Auto) 6.00 Lymph # (Auto) 0.80 L [place] # (Auto) 0.70 Eos # (Auto) 0.05 Baso # (Auto) 0.02 Abs Immat Gran (auto) 0.03 Imm/Tot Granulo (auto) 0.4 Sodium 136 Potassium 3.9 Chloride 110 Carbon Dioxide 20 Anion Gap 6 L BUN 46 H Creatinine 1.3 Estimated Creat Clear 27.95 Estimated GFR 40 Glucose 102 Calcium 7.8 L Total Bilirubin 0.5 Direct Bilirubin 0.3 AST 87 H ALT 38 H Alkaline Phosphatase 59 Total Creatine Kinase 1097 H Total Protein 5.2 L Albumin 2.6 L
--- NOTE | 2024-04-27 13:20 | PC.SOCIAL ---
Addendum entered by EMILIANO Carreon 04/27/24 15:05: Discharge planning: magazine worker sent Renita updated notes via secure email related to pt's shoulder x-ray of her right shoulder. Social work to follow-up as needed. Addendum entered by EMILIANO Carreon 04/27/24 14:59: Discharge planning: magazine worker heard back from Renita at [facility] and she stated that nursing is concerned about pt's RUE pain that she has been experiencing during her hospital stay and would like more information on that as they continue to assess the pt for short-term rehab. Social work to follow-up as needed. Original Note: Discharge planning: magazine worker met with pt and her daughter, Lexy, to discuss discharge planning. Pt is being recommended for short-term rehab at discharge and would like to go to [facility] in [place]. Pt should be ready for dischage tomorrow. magazine worker reached out to Renita at [facility] to see about openings and they do have female openings for short-term rehab this week. magazine worker sent the referral to Renita via secure email. Social work to follow-up as needed.
[2024-04-27] MEDS: LIDOCAINE 5% PATCH 1 PATCH TRANSDERMA (15:53)
[2024-04-27] MEDS: VANCOMYCIN 1.25 GM/250 ML 1.25 GM/250 ML PIGGYBACK IVPB (20:11)
[2024-04-28] VITALS (8 sets, daily range): BP systolic 138–179; BP diastolic 56–81; PULSE 66–78; RESP 16–18; TEMP 36.2–37.4; O2SAT 96–100
[2024-04-28] MEDS: PIPERACILLIN/TAZOBACTAM 2.25 GM in 0.9 % SODIUM CHLORIDE Mini-bag 100 ML IVPB ×3 (03:10→17:46)
[2024-04-28] MEDS: ACETAMINOPHEN 325 MG TABLET 650 MG PO ×4 (05:12→22:59)
[2024-04-28 07:05] LABS: Basophils Absolute Auto 0.02 K/uL (0.00-0.30); Basophils Percent Auto 0.3 % (0.0-3.0); Eosinophils Absolute Auto 0.05 K/uL (0.00-0.50); Eosinophils Percent Auto 0.6 % (0.0-7.0); Hematocrit 33.1 % (33.0-51.0); Hemoglobin* 10.7 gm/dL (12.0-16.0); Immature Granulocytes Abs Auto 0.04 K/uL (0.00-0.30); Immature Granulocytes Pct Auto 0.5 %; Lymphocytes Percent Auto 9.4 % (20-44); Mean Corpuscular HGB Conc 32 gm/dL (32-36); Mean Corpuscular Hemoglobin 31 pg (26-34); Mean Corpuscular Volume 95 fL (80-100); Monocytes Percent Auto 10.1 % (0.0-11.0); Neutrophils Percent Auto 79.1 % (42.0-72.0); Platelet Count* 88 K/uL (140-440); RDW Coefficient of Variation % 12.6 % (11.5-15.5); Red Blood Count 3.49 m/uL (4.00-5.20)
[2024-04-28 07:07] LABS: Slide Review Reflex No
[2024-04-28 07:28] LABS: Albumin* 2.6 g/dL (3.3-5.0)
[2024-04-28 07:29] LABS: Chloride* 109 mmol/L (96-114); Potassium* 3.5 mmol/L (3.6-5.1); Sodium* 134 mmol/L (135-149)
[2024-04-28 07:31] LABS: Anion Gap 5 mEq/L (7-15); Aspartate Amino Transferase* 51 U/L (12-35); Bilirubin Direct* 0.4 mg/dL (0.0-0.5); Bilirubin Total* 0.7 mg/dL (0.1-1.5); Blood Urea Nitrogen* 30 mg/dL (7-30); Carbon Dioxide* 20 mmol/L (20-32); Creatinine* 1.1 mg/dL (0.5-1.5); Est. Creatinine Clearance* 33.03; Estimated Glomerular Filt Rate 49 ml/min; Total Protein* 5.2 g/dL (6.0-8.3)
[2024-04-28 07:32] LABS: Alanine Aminotransferase* 34 U/L (4-35); Alkaline Phosphatase* 72 U/L (40-150); Calcium* 8.2 mg/dL (8.4-10.6); Glucose* 108 mg/dL (60-115)
[2024-04-28] MEDS: lisinopriL 20 MG TABLET PO (09:00)
[2024-04-28] MEDS: OXYCODONE 5 MG TABLET 2.5 MG PO ×2 (09:00→22:58)
[2024-04-28] MEDS: atenoloL 50 MG TABLET PO (09:00)
[2024-04-28] MEDS: SODIUM CHLORIDE 0.9 % (FLUSH) 10 ML SYRINGE 5 ML IVF ×2 (09:01→22:58)
--- NOTE | 2024-04-28 12:13 | PC.SOCIAL ---
Addendum entered by EMILIANO Carreon 04/28/24 15:17: Discharge planning: Renita at [facility] is requesting this worker send updated notes on the pt to her on morning. Social work to follow-up as needed. Original Note: Discharge planning: Pt will most likely be able to go to [facility] on . They cannot accept her today due to staffing issues and the provider is still waiting on cultures to return for the pt. panel lay up worker updated the pt and her daughter Lexy. Social work to follow-up as needed.
[2024-04-28] MEDS: LIDOCAINE 5% PATCH 1 PATCH TRANSDERMA (14:03)
--- NOTE | 2024-04-28 14:58 | PC.NURSE ---
End of shift report: Patient here for IV antibiotics for positive blood cultures. Patient has been up ambulating multiple times today. Alert and oriented and pleasant. Washed up with OT today. Tele DC'd. Vital signs within normal limits. Pain in right shoulder Is getting better. Tylenol/oxy/lidocaine patch/ice for relief. Voiding. Had a BM last evening. Skin intact. PIV patent and intact. Will need placement once medically ready.
--- NOTE | 2024-04-28 15:57 | PM.IMPN1 ---
Progress Note: A&P Assessment and plan (1) Sepsis: Problem details: -SOFA score 5. NEWS2 score 4 P -blood culture x1 growing Gram-positive cocci in chains. Repeat BC ordered for 04/27. UC growing > 100,000 gram-negative salvatore -likely has UTI -IV fluids, single dose of piperacillin with tazobactam 3.375 g and single dose of vancomycin 1.5 g, then piperacillin 2.5 g IV q.8 hours to reflect decreased kidney function -continue vancomycin, renally dosed, given positive blood culture x1 -group G strep isolated in 1st BC - sent to [place] for sensitivities -repeat BC 04/27 NGTD Status: Resolved (2) Acute renal failure: Problem details: -baseline creatinine of 1 with current creatinine 2.4 -likely due to acute rhabdomyolysis -avoid nephrotoxins. Hold Lisinopril -resume 04/28 -urethral catheter, IV fluids, monitor labs -urethral catheter in place - discontinued, measure I's and O's, daily weight Down trending, 1.8 -> 1.3 -> 1.1 Status: Resolved (3) UTI (urinary tract infection) with pyuria: Problem details: -decreased urine output with cream colored urine with nitrites, leukocyte esterase, white blood cells -urine culture growing > 100,000 gram-negative salvatore. Awaiting sensitivities -continue Zosyn, renally dosed Status: Acute (4) Demand ischemia: Problem details: -trop I elevated at 2.41 with normal electrocardiogram without evidence of ischemia or infarction -monitor on tele, serial EKG, serial trop I, address likely culprit cause of sepsis and UTI -troponins 2.41 ->1.23 ->0.91. EKG remains NSR, QTC 501 -echocardiogram 04/26/24 Final Impressions: 1. Normal LV size, normal wall thickness, low normal global systolic function with an estimated EF of 65 - 70%. 2. Moderately enlarged left atrium. 3. Right ventricular cavity size is normal, global systolic RV function is normal. 4. The aortic valve is calcified and trileaflet, no stenosis and no regurgitation. 5. The mitral valve is normal, mild mitral regurgitation. 6. Normal estimated pulmonary pressures by tricuspid regurgitation velocity and right atrial pressure (29 mmHg plus RAP). Status: Acute (5) Rhabdomyolysis: Problem details: -likely due to patient being on the floor for 2+ hours -CK on admission 12,634 -> 5440 -> 1097 -IV fluids -discontinued, monitor renal function panel Status: Resolved (6) Lactic acidosis: Problem details: -lactate elevated at 4.7 -> 2.6 ->0.9 -IV fluids and monitor lactate -treat underlying UTI and sepsis Status: Resolved (7) Leukocytosis: Problem details: -WBC 17, monitor with treatment. Lactate normalized. CRP 33.4 -> 37.8 Improved to 10.3 Status: Resolved (8) Thrombocytopenia: Problem details: -platelet count 113 -> 89 -> 84, monitor with treatment - stable -SCDs for VTE PPX Status: Acute (9) Abnormal AST and ALT: Problem details: -monitor with treatment and while on Tylenol - down trending Status: Acute (10) Bacteremia: Problem details: BC growing gram + cocci in chains. Group G strep isolated in BC - sent to [place] for sensitivities Continue Zosyn, restart vancomycin, renally dosed Repeat BC 04/27/2024 NGTD Status: Acute (11) Essential hypertension: Problem details: Pressures soft on admission in setting of sepsis - improving, mildly hypertensive now Resume atenolol and lisinopril 04/28 Status: Acute (12) Shoulder pain, right: Problem details: Present on admission. 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 Pain with ROM Shoulder xray shows no acute fracture or dislocation. Degenerative changes of the AC and less so glenohumeral joints. Tylenol scheduled, lidocaine patch, cold compression as needed Improving, continue above management Status: Acute (13) Knee pain, right: Problem details: Present on admission. Believes it is from army crawling across floor at home. No fall. Able to bear weight Improving Status: Acute Plan Continue IV antibiotics, awaiting BC/UC results and sensitivities. Possible discharge to [facility] on 04/30/2024 Time Spent With Patient Total time spent: Total time spent caring for the patient today was 45 minutes. This includes time spent for the visit reviewing the chart, time spent during the visit, time spent after the visit and documentation and planning in coordination of care. Subjective Date Seen: 04/28/24 Interval history: Patient seen sitting up in a chair this morning. Has been up with therapies. Continues to improve. Denies headache or dizziness. Tells me this morning her right shoulder pain is somewhat better but still painful with range of motion. Right knee is less bothersome. Tolerating ambulation. Remains afebrile. Exam Narrative: Exam Narrative: PHYSICAL EXAM General: Pleasant, conversant, NAD Cardiovascular: RRR, S1S2. No pitting edema Pulmonary: CTA bilaterally without rhonchi, rales, expiratory wheezes. No dyspnea on room air Neurological: Alert, answering questions appropriately, cranial nerves intact, no focal findings Extremities: RUE without erythema or swelling. Decreased AROM at shoulder in extension and abduction secondary to pain. Limited PROM secondary to pain. Pain with palpation over AC joint and bicep. No pain palpable or with range of motion of the elbow wrist or hand. Right knee tender over anterolateral aspect without swelling. Range of motion intact, able to weightbear. Neurovascularly intact Skin: Warm, dry. Const: Vital Signs, click to edit/add: Vital Signs - 24 hr 04/27/24 19:00 04/27/24 23:00 04/28/24 01:01 Temperature Pulse Rate 78 Pulse Rate [Apical ] Pulse Rate [Pulse Oximeter] 73 Respiratory Rate 18 Blood Pressure [Ri ght Arm] 134/62 Pulse Oximetry 98 96 Oxygen Delivery Me thod Room Air Room Air 04/28/24 07:05 04/28/24 07:58 04/28/24 08:00 Temperature 98.3 F Pulse Rate 71 Pulse Rate [Apical ] 78 Pulse Rate [Pulse Oximeter] Respiratory Rate 16 Blood Pressure [Ri ght Arm] 144/77 H Pulse Oximetry 98 96 Oxygen Delivery Me thod Room Air Room Air 04/28/24 11:17 Temperature 98.2 F Pulse Rate Pulse Rate [Apical ] 66 Pulse Rate [Pulse Oximeter] Respiratory Rate 16 Blood Pressure [Ri ght Arm] 138/62 Pulse Oximetry 99 Oxygen Delivery Me thod Room Air Labs Labs: Laboratory Results - last 24 hr 04/28/24 05:53 WBC 7.80 RBC 3.49 L Hgb 10.7 L Hct 33.1 MCV 95 MCH 31 MCHC 32 RDW Coeff of Jayla 12.6 Plt Count 88 L Neut % (Auto) 79.1 H Lymph % (Auto) 9.4 L [place] % (Auto) 10.1 Eos % (Auto) 0.6 Baso % (Auto) 0.3 Neut # (Auto) 6.20 Lymph # (Auto) 0.70 L [place] # (Auto) 0.80 Eos # (Auto) 0.05 Baso # (Auto) 0.02 Abs Immat Gran (auto) 0.04 Imm/Tot Granulo (auto) 0.5 Sodium 134 L Potassium 3.5 L Chloride 109 Carbon Dioxide 20 Anion Gap 5 L BUN 30 Creatinine 1.1 Estimated Creat Clear 33.03 Estimated GFR 49 Glucose 108 Calcium 8.2 L Total Bilirubin 0.7 Direct Bilirubin 0.4 AST 51 H ALT 34 Alkaline Phosphatase 72 Total Protein 5.2 L Albumin 2.6 L
[2024-04-28] MEDS: MELATONIN 3 MG TABLET PO (22:59)
[2024-04-29] MEDS: PIPERACILLIN/TAZOBACTAM 2.25 GM in 0.9 % SODIUM CHLORIDE Mini-bag 100 ML IVPB ×2 (02:51→09:56)
[2024-04-29] MEDS: SODIUM CHLORIDE 0.9 % (FLUSH) 10 ML SYRINGE 5 ML IVF ×3 (02:52→20:10)
[2024-04-29 05:47] VITALS: PULSE 68; RESP 20; O2SAT 94
[2024-04-29] MEDS: OXYCODONE 5 MG TABLET 2.5 MG PO ×3 (06:09→20:10)
[2024-04-29] MEDS: ACETAMINOPHEN 325 MG TABLET 650 MG PO ×4 (06:10→20:09)
--- NOTE | 2024-04-29 06:55 | PC.NURSE ---
End of shift [id number] ? Pt alert, oriented to self, time, place, and situation. Observed to sleep during majority of shift. Pt reported pain in R arm described as ?achy? and rated as 8/10. Medication given per MAR with pt indicating tolerating pain and sleeping. Ice pack in place to improve comfort. Up with standby assistance and walker/gait belt. Tolerating RA and regular fluids. Appears to be resting comfortably in chair at end of shift with call light within reach. ?
[2024-04-29 07:15] LABS: Basophils Absolute Auto 0.02 K/uL (0.00-0.30); Basophils Percent Auto 0.3 % (0.0-3.0); Eosinophils Absolute Auto 0.09 K/uL (0.00-0.50); Eosinophils Percent Auto 1.3 % (0.0-7.0); Hemoglobin* 10.8 gm/dL (12.0-16.0); Immature Granulocytes Abs Auto 0.06 K/uL (0.00-0.30); Immature Granulocytes Pct Auto 0.9 %; Mean Corpuscular HGB Conc 33 gm/dL (32-36); Mean Corpuscular Hemoglobin 31 pg (26-34); Mean Corpuscular Volume 95 fL (80-100); Monocytes Percent Auto 9.3 % (0.0-11.0); Neutrophils Percent Auto 74.2 % (42.0-72.0); Platelet Count* 98 K/uL (140-440); RDW Coefficient of Variation % 12.6 % (11.5-15.5); Red Blood Count 3.48 m/uL (4.00-5.20); White Blood Count* 6.77 K/uL (4.50-11.00)
[2024-04-29 07:18] LABS: Slide Review Reflex No
[2024-04-29 07:27] LABS: Chloride* 108 mmol/L (96-114); Sodium* 134 mmol/L (135-149)
[2024-04-29 07:28] LABS: Potassium* 3.5 mmol/L (3.6-5.1)
[2024-04-29 07:30] LABS: Anion Gap 2 mEq/L (7-15); Blood Urea Nitrogen* 22 mg/dL (7-30); Carbon Dioxide* 24 mmol/L (20-32); Creatinine* 0.9 mg/dL (0.5-1.5); Est. Creatinine Clearance* 36.34; Estimated Glomerular Filt Rate 62 ml/min
[2024-04-29 07:31] LABS: Calcium* 8.4 mg/dL (8.4-10.6); Glucose* 120 mg/dL (60-115)
--- NOTE | 2024-04-29 07:35 | PM.IMPN1 ---
Progress Note: A&P Assessment and plan (1) Sepsis: Problem details: RESOLVED -SOFA score 5. NEWS2 score 4 P -blood culture x1 growing Gram-positive cocci in chains. Repeat BC ordered for 04/27. UC growing > 100,000 gram-negative salvatore -likely has UTI -IV fluids, single dose of piperacillin with tazobactam 3.375 g and single dose of vancomycin 1.5 g, then piperacillin 2.5 g IV q.8 hours to reflect decreased kidney function -continue vancomycin, renally dosed, given positive blood culture x1 -group G strep isolated in BC - sent to [facility] for sensitivities - as of 04/29 our lab has not received outside report yet -repeat BC 04/27 NGTD Status: Resolved (2) Acute renal failure: Problem details: RESOLVED -baseline creatinine of 1 with current creatinine 2.4 -likely due to acute rhabdomyolysis -avoid nephrotoxins. Hold Lisinopril -resume 04/28 -urethral catheter, IV fluids, monitor labs -urethral catheter in place - discontinued, measure I's and O's, daily weight Down trending, 1.8 -> 1.3 -> 1.1 Status: Resolved (3) UTI (urinary tract infection) with pyuria: Problem details: -decreased urine output with cream colored urine with nitrites, leukocyte esterase, white blood cells -urine culture growing > 100,000 gram-negative salvatore. Resulted 04/29 Shigella G -continue Zosyn, renally dosed SHIGELLA isolated. Contact precautions. Stop IV Zosyn and Vanc. Start oral Cipro Status: Acute (4) Demand ischemia: Problem details: -trop I elevated at 2.41 with normal electrocardiogram without evidence of ischemia or infarction -monitor on tele, serial EKG, serial trop I, address likely culprit cause of sepsis and UTI -troponins 2.41 ->1.23 ->0.91. EKG remains NSR, QTC 501 -echocardiogram 04/26/24 Final Impressions: 1. Normal LV size, normal wall thickness, low normal global systolic function with an estimated EF of 65 - 70%. 2. Moderately enlarged left atrium. 3. Right ventricular cavity size is normal, global systolic RV function is normal. 4. The aortic valve is calcified and trileaflet, no stenosis and no regurgitation. 5. The mitral valve is normal, mild mitral regurgitation. 6. Normal estimated pulmonary pressures by tricuspid regurgitation velocity and right atrial pressure (29 mmHg plus RAP). Status: Acute (5) Rhabdomyolysis: Problem details: RESOLVED -likely due to patient being on the floor for 2+ hours -CK on admission 12,634 -> 5440 -> 1097 -IV fluids -discontinued, monitor renal function panel Status: Resolved (6) Lactic acidosis: Problem details: RESOLVED -lactate elevated at 4.7 -> 2.6 ->0.9 -IV fluids and monitor lactate -treat underlying UTI and sepsis Status: Resolved (7) Leukocytosis: Problem details: RESOLVED -WBC 17, monitor with treatment. Lactate normalized. CRP 33.4 -> 37.8 Improved to 10.3 Status: Resolved (8) Thrombocytopenia: Problem details: -platelet count 113 -> 89 -> 84, monitor with treatment - stable - trending up -SCDs for VTE PPX, encourage ambulation Status: Acute (9) Abnormal AST and ALT: Problem details: -monitor with treatment and while on Tylenol - down trending Status: Acute (10) Bacteremia: Problem details: BC growing gram + cocci in chains. Group G strep isolated in 1st BC - sent to [facility] sensitivities - as of 04/29/24, our lab does not yet have these results Continue Zosyn, restart vancomycin, renally dosed - discontinued, Shigella in UC. Starting oral Cipro Repeat BC 04/27/2024 NGTD Status: Acute (11) Essential hypertension: Problem details: Pressures soft on admission in setting of sepsis - improving, mildly hypertensive now Resume atenolol and lisinopril 04/28 Status: Acute (12) Shoulder pain, right: Problem details: Present on admission. Believes it is from [employer] crawling across floor and lying on floor approx 2 hours at home. Pain with ROM Shoulder xray shows no acute fracture or dislocation. Degenerative changes of the AC and less so glenohumeral joints. Tylenol scheduled, lidocaine patch, cold compression as needed. Avoid immobilization to decrease risk for frozen syndrome Improving, continue above management Status: Acute (13) Knee pain, right: Problem details: Present on admission. Believes it is from [employer] crawling across floor at home. No fall. Able to bear weight Improving Status: Acute Plan Starting oral abx. Still awaiting BC results and sensitivities from [facility]. Possible discharge to [facility] on 04/30/2024 - on oral abx Time Spent With Patient Total time spent: Total time spent caring for the patient today was 45 minutes. This includes time spent for the visit reviewing the chart, time spent during the visit, time spent after the visit and documentation and planning in coordination of care. Subjective Date Seen: 04/29/24 Interval history: Patient is seen sitting up in a chair, feeling quite well. Denies headache or dizziness. Denies chest pain or shortness of breath. Remains afebrile. No hypoxia. Vitally stable. Right shoulder pain continues to improve ever so slightly. Working on gentle range of motion with some improvement. Right knee a little more sore this morning as she was working on side stepping with PT. Awaiting culture results from [facility] - our lab does not have these yet as of 04/29. Awaiting placement, [facility] on 04/30/2024 Exam Narrative: Exam Narrative: PHYSICAL EXAM General: Pleasant, conversant, NAD Cardiovascular: RRR, S1S2. No pitting edema Pulmonary: CTA bilaterally without rhonchi, rales, expiratory wheezes. No dyspnea on room air Neurological: Alert, answering questions appropriately, cranial nerves intact, no focal findings Extremities: RUE without erythema. Mild swelling noted into hand. Some improvement of PROM. Remains sore. Neurovascularly intact Skin: Warm, dry. Const: Vital Signs, click to edit/add: Vital Signs - 24 hr 04/28/24 07:58 04/28/24 08:00 04/28/24 11:17 Temperature 98.3 F 98.2 F Pulse Rate [Apical ] 78 66 Pulse Rate [Pulse Oximeter] Respiratory Rate 16 16 Blood Pressure [Ri ght Arm] 144/77 H 138/62 Pulse Oximetry 98 96 99 Oxygen Delivery Me thod Room Air Room Air Room Air 04/28/24 15:00 04/28/24 15:00 04/28/24 15:00 Temperature 99.3 F Pulse Rate [Apical ] Pulse Rate [Pulse Oximeter] 70 70 Respiratory Rate 16 18 18 Blood Pressure [Ri ght Arm] 158/77 H Pulse Oximetry 100 100 Oxygen Delivery Me thod Room Air Room Air 04/28/24 21:26 04/28/24 23:09 04/28/24 23:09 Temperature 97.1 F L 98.0 F Pulse Rate [Apical ] Pulse Rate [Pulse Oximeter] 70 73 Respiratory Rate 18 18 Blood Pressure [Ri ght Arm] 179/81 H 145/56 H Pulse Oximetry 100 99 99 Oxygen Delivery Me thod Room Air Room Air Room Air 04/29/24 05:47 Temperature Pulse Rate [Apical ] Pulse Rate [Pulse Oximeter] 68 Respiratory Rate 20 Blood Pressure [Ri ght Arm] Pulse Oximetry 94 Oxygen Delivery Me thod Room Air Labs Labs: Laboratory Results - last 24 hr 04/29/24 06:50 WBC 6.77 RBC 3.48 L Hgb 10.8 L Hct 33.0 MCV 95 MCH 31 MCHC 33 RDW Coeff of Jayla 12.6 Plt Count 98 L Neut % (Auto) 74.2 H Lymph % (Auto) 14.0 L [place] % (Auto) 9.3 Eos % (Auto) 1.3 Baso % (Auto) 0.3 Neut # (Auto) 5.00 Lymph # (Auto) 0.90 [place] # (Auto) 0.60 Eos # (Auto) 0.09 Baso # (Auto) 0.02 Abs Immat Gran (auto) 0.06 Imm/Tot Granulo (auto) 0.9 Sodium 134 L Potassium 3.5 L Chloride 108 Carbon Dioxide 24 Anion Gap 2 L BUN 22 Creatinine 0.9 Estimated Creat Clear 36.34 Estimated GFR 62 Glucose 120 H Calcium 8.4
[2024-04-29 09:10] VITALS: PULSE 69; RESP 18; TEMP 36.3; O2SAT 95
[2024-04-29] MEDS: lisinopriL 20 MG TABLET PO (09:55)
[2024-04-29] MEDS: atenoloL 50 MG TABLET PO (09:55)
[2024-04-29 12:00] VITALS: PULSE 66; RESP 16; O2SAT 94
[2024-04-29] MEDS: LIDOCAINE 5% PATCH 1 PATCH TRANSDERMA (14:10)
[2024-04-29] MEDS: CIPROFLOXACIN 250 MG TABLET PO ×2 (14:10→20:09)
[2024-04-29 16:20] VITALS: BP 153/79; PULSE 70; RESP 18; TEMP 36.6; O2SAT 100
--- NOTE | 2024-04-29 19:15 | PC.NURSE ---
Pt pleasant and cooperative. Rates pain 5-8/10, see MAR for pain medication management. Active ice to low back. Elevation & support of left arm with use of pillows.
[2024-04-29] MEDS: MELATONIN 3 MG TABLET PO (20:09)
[2024-04-29 20:21] VITALS: BP 141/65; PULSE 71; RESP 18; TEMP 36.5; O2SAT 95
[2024-04-30 00:42] VITALS: O2SAT 95
[2024-04-30] MEDS: ACETAMINOPHEN 325 MG TABLET 650 MG PO ×2 (03:14→09:49)
[2024-04-30 04:14] VITALS: BP 159/84; PULSE 78; RESP 20; TEMP 36.5; O2SAT 98
--- NOTE | 2024-04-30 06:08 | PC.NURSE ---
End of shift [id number] Pt alert, oriented, and cooperative. Observed to sleep. Pt reported pain in R arm and R knee rated as 8/10. Medication given per JUN with pt indicating tolerating pain and ice pack added to R knee for patient comfort. Up with standby assistance and walker/gait belt. Continent of bladder during shift. Tolerating RA and regular fluids. Appears to be resting comfortably in bed at end of shift with call light within reach. ?
[2024-04-30 07:00] VITALS: PULSE 77; RESP 18; O2SAT 99
[2024-04-30 07:11] LABS: Basophils Absolute Auto 0.03 K/uL (0.00-0.30); Basophils Percent Auto 0.4 % (0.0-3.0); Eosinophils Absolute Auto 0.08 K/uL (0.00-0.50); Eosinophils Percent Auto 1.1 % (0.0-7.0); Hematocrit 32.7 % (33.0-51.0); Hemoglobin* 10.6 gm/dL (12.0-16.0); Immature Granulocytes Abs Auto 0.11 K/uL (0.00-0.30); Immature Granulocytes Pct Auto 1.5 %; Lymphocytes Percent Auto 15.9 % (20-44); Mean Corpuscular HGB Conc 32 gm/dL (32-36); Mean Corpuscular Hemoglobin 31 pg (26-34); Mean Corpuscular Volume 96 fL (80-100); Neutrophils Percent Auto 72.1 % (42.0-72.0); Platelet Count* 122 K/uL (140-440); RDW Coefficient of Variation % 12.6 % (11.5-15.5); Red Blood Count 3.42 m/uL (4.00-5.20); White Blood Count* 7.25 K/uL (4.50-11.00)
[2024-04-30 07:29] LABS: Chloride* 106 mmol/L (96-114); Potassium* 3.9 mmol/L (3.6-5.1); Sodium* 134 mmol/L (135-149)
[2024-04-30 07:31] LABS: Slide Review Reflex No
[2024-04-30 07:32] LABS: Anion Gap 3 mEq/L (7-15); Carbon Dioxide* 25 mmol/L (20-32); Creatinine* 0.8 mg/dL (0.5-1.5); Est. Creatinine Clearance* 36.34; Estimated Glomerular Filt Rate 72 ml/min
[2024-04-30 07:33] LABS: Blood Urea Nitrogen* 18 mg/dL (7-30); Calcium* 8.4 mg/dL (8.4-10.6); Glucose* 112 mg/dL (60-115)
[2024-04-30 07:38] VITALS: BP 153/89; PULSE 77; RESP 18; TEMP 36.5; O2SAT 100
[2024-04-30] MEDS: atenoloL 50 MG TABLET PO (09:50)
[2024-04-30] MEDS: SODIUM CHLORIDE 0.9 % (FLUSH) 10 ML SYRINGE 5 ML IVF (09:50)
[2024-04-30] MEDS: CIPROFLOXACIN 250 MG TABLET PO (09:50)
[2024-04-30] MEDS: lisinopriL 20 MG TABLET PO (09:50)
[2024-04-30 11:09] LABS: SARS PCR* Negative SARS-CoV-2 (Negative)
--- NOTE | 2024-04-30 11:56 | PM.DS1 ---
DS: Providers Provider Date Seen: 04/30/24 Date of admission: 04/25/24 18:31 Primary care physician: Camilo Dorman MD Admitting Clinician: Jeffrey Williamson MD Consults: 04/25/24 18:31 Consult to Occupational Therapy [CONS] Routine Comment: Reason(s) for OT Consult:: Evaluate and Treat Any Restrictions?:: No Restrictions Consult to Physical Therapy [CONS] Routine Comment: Reason(s) for PT Consult:: Evaluate and Treat Any Restrictions?:: No Restrictions Consult to [facility] [CONS] Routine Comment: Reason for Consult:: Discharge Planning Needs Attending Physician on discharge: VALE No, ARYAN [place] Hospitalist Date of Discharge: 04/30/24 DS: Diagnosis Discharge Diagnosis (1) UTI (urinary tract infection) with pyuria: Status: Acute Problem details: -decreased urine output with cream colored urine with nitrites, leukocyte esterase, white blood cells -urine culture growing > 100,000 gram-negative salvatore. Resulted 04/29 Shigella G -continue Zosyn, renally dosed SHIGELLA isolated. Contact precautions. Sensitivities reviewed. Stop IV Zosyn and Vanc. Start oral Cipro -discontinued prior to discharge. Started on Augmentin. Patient is discharged on oral Augmentin as this should cover shigella (ampicillin sensitive) and cover for Gram-positive cocci in chains noted in blood culture, awaiting sensitivities. 04/25/2024 Blood culture sent to [place], sensitivities remain pending per local lab. Repeat blood culture 04/27 negative. Management with Augmentin given significant clinical improvement, has remained afebrile. (2) Bacteremia: Status: Acute Problem details: BC growing gram + cocci in chains. Group G strep isolated in BC - sent to [place] for sensitivities - as of 04/30/24, our lab does not yet have these results Continue Zosyn, restart vancomycin, renally dosed - discontinued, Shigella in UC. Starting oral Cipro Repeat BC 04/27/2024 NGTD Received IV Zosyn and vancomycin during hospital course. Transitioned to oral Cipro which was discontinued. Started on Augmentin prior to discharge. Awaiting sensitivities. (3) Demand ischemia: Status: Acute Problem details: -trop I elevated at 2.41 with normal electrocardiogram without evidence of ischemia or infarction -monitor on tele, serial EKG, serial trop I, address likely culprit cause of sepsis and UTI -troponins 2.41 ->1.23 ->0.91. EKG remains NSR, QTC 501 -echocardiogram 04/26/24 Final Impressions: 1. Normal LV size, normal wall thickness, low normal global systolic function with an estimated EF of 65 - 70%. 2. Moderately enlarged left atrium. 3. Right ventricular cavity size is normal, global systolic RV function is normal. 4. The aortic valve is calcified and trileaflet, no stenosis and no regurgitation. 5. The mitral valve is normal, mild mitral regurgitation. 6. Normal estimated pulmonary pressures by tricuspid regurgitation velocity and right atrial pressure (29 mmHg plus RAP). (4) Sepsis: Status: Resolved Problem details: RESOLVED -SOFA score 5. NEWS2 score 4 P -blood culture x1 growing Gram-positive cocci in chains. Repeat BC ordered for 04/27. UC growing > 100,000 gram-negative salvatore -likely has UTI -IV fluids, single dose of piperacillin with tazobactam 3.375 g and single dose of vancomycin 1.5 g, then piperacillin 2.5 g IV q.8 hours to reflect decreased kidney function -continue vancomycin, renally dosed, given positive blood culture x1 -group G strep isolated in BC - sent to [place] for sensitivities - as of 04/29 our lab has not received outside report yet -repeat BC 04/27 NGTD (5) Acute renal failure: Status: Resolved Problem details: RESOLVED -baseline creatinine of 1 with current creatinine 2.4 -likely due to acute rhabdomyolysis -avoid nephrotoxins. Hold Lisinopril -resume 04/28 -urethral catheter, IV fluids, monitor labs -urethral catheter in place - discontinued, measure I's and O's, daily weight Down trending, 1.8 -> 1.3 -> 1.1 (6) Rhabdomyolysis: Status: Resolved Problem details: RESOLVED -likely due to patient being on the floor for 2+ hours -CK on admission 12,634 -> 5440 -> 1097 -IV fluids -discontinued, monitor renal function panel (7) Lactic acidosis: Status: Resolved Problem details: RESOLVED -lactate elevated at 4.7 -> 2.6 ->0.9 -IV fluids and monitor lactate -treat underlying UTI and sepsis (8) Leukocytosis: Status: Resolved Problem details: RESOLVED -WBC 17, monitor with treatment. Lactate normalized. CRP 33.4 -> 37.8 Improved to 10.3 (9) Thrombocytopenia: Status: Acute Problem details: -platelet count 113 -> 89 -> 84, monitor with treatment - stable - trending up -SCDs for VTE PPX, encourage ambulation Platelets 122 on day of discharge. Outpatient follow-up with PCP. (10) Abnormal AST and ALT: Status: Acute Problem details: -monitor with treatment and while on Tylenol - down trending. Outpatient follow-up with PCP (11) Essential hypertension: Status: Acute Problem details: Pressures soft on admission in setting of sepsis - improving, mildly hypertensive now Resume atenolol and lisinopril 04/28 (12) Shoulder pain, right: Status: Acute Problem details: Present on admission. Believes it is from [employer] crawling across floor and lying on floor approx 2 hours at home. Pain with ROM Shoulder xray shows no acute fracture or dislocation. Degenerative changes of the AC and less so glenohumeral joints. Tylenol scheduled, lidocaine patch, cold compression as needed. Avoid immobilization to decrease risk for frozen syndrome Improving, continue above management Patient is discharged to continue as-needed Tylenol, lidocaine patch. Elevation right upper extremity to reduce swelling. Cool compress/heat as needed for comfort. Continue with therapies to increase range of motion, reduce pain, increase strength. Would avoid immobilization to reduce risks for frozen shoulder syndrome. Consideration for further imaging, repeat evaluation if new or worsening symptoms or no resolve. (13) Knee pain, right: Status: Acute Problem details: Present on admission. Believes it is from [employer] crawling across floor at home. No fall. Able to bear weight. No swelling, erythema, bruising. Improving (14) Abnormal finding on CT scan: Status: Acute Problem details: Of pancreatic head/uncinate process Of left kidney Faint region of decreased attenuation in the pancreatic head/uncinate process (series number 2, image 108) measuring approximately 1.8 centimeters, and an exophytic low-density lesion in the left kidney measuring approximately 1.6 centimeters, both incompletely characterized on this exam. Recommend outpatient CT with pancreatic/renal protocol for further assessment. (15) Pulmonary nodule: Status: Acute Problem details: Subpleural 7 millimeter pulmonary nodule in the left lower lobe Recommend repeat CT chest in 6-12 months. DS: Summary Hospital Course Hospital Course: Course of care and details as noted above. Remainder of chronic medical comorbidities were monitored and managed with home medications. Status at Discharge Functional status at discharge: uses cane/walker Overall status at discharge: patient is progressing back to baseline Time Spent with Patient Time attestation: Total time spent providing and/or coordinating discharge services: Time spent: Greater than 30 minutes Exam Narrative: Exam Narrative: PHYSICAL EXAM General: Pleasant, conversant, NAD Cardiovascular: RRR Pulmonary: No dyspnea Neurological: Alert, answering questions appropriately Skin: Warm, dry. Const: Vital Signs, click to edit/add: Vital Signs - 24 hr 04/29/24 12:00 04/29/24 16:20 04/29/24 16:20 Temperature 97.8 F Pulse Rate [Apical ] Pulse Rate [Pulse Oximeter] 66 70 Respiratory Rate 16 18 18 Blood Pressure [Le ft Arm] 153/79 H Blood Pressure [Ri ght Arm] Pulse Oximetry 94 100 100 Oxygen Delivery Me thod Room Air Room Air Room Air 04/29/24 20:21 04/30/24 00:42 04/30/24 04:14 Temperature 97.7 F 97.7 F Pulse Rate [Apical ] Pulse Rate [Pulse Oximeter] 71 78 Respiratory Rate 18 20 Blood Pressure [Le ft Arm] Blood Pressure [Ri ght Arm] 141/65 H 159/84 H Pulse Oximetry 95 95 98 Oxygen Delivery Me thod Room Air Room Air Room Air 04/30/24 07:00 04/30/24 07:00 04/30/24 07:38 Temperature 97.7 F Pulse Rate [Apical ] 77 77 Pulse Rate [Pulse Oximeter] Respiratory Rate 18 18 Blood Pressure [Le ft Arm] Blood Pressure [Ri ght Arm] 153/89 H Pulse Oximetry 99 100 Oxygen Delivery Me thod Room Air Room Air DS: Data Data Completed and Pending Pending studies at discharge: Blood cultures with sensitivities which were sent to [place] Labs on day of discharge: Labs from last 24 hours 04/30/24 04/30/24 10:35 06:09 WBC 7.25 RBC 3.42 L Hgb 10.6 L Hct 32.7 L MCV 96 MCH 31 MCHC 32 RDW Coeff of Jayla 12.6 Plt Count 122 L Neut % (Auto) 72.1 H Lymph % (Auto) 15.9 L [place] % (Auto) 9.0 Eos % (Auto) 1.1 Baso % (Auto) 0.4 Neut # (Auto) 5.20 Lymph # (Auto) 1.20 [place] # (Auto) 0.70 Eos # (Auto) 0.08 Baso # (Auto) 0.03 Abs Immat Gran (auto) 0.11 Imm/Tot Granulo (auto) 1.5 Sodium 134 L Potassium 3.9 Chloride 106 Carbon Dioxide 25 Anion Gap 3 L BUN 18 Creatinine 0.8 Estimated Creat Clear 36.34 Estimated GFR 72 Glucose 112 Calcium 8.4 SARS-CoV-2 (PCR) Negative SARS-CoV-2 Preliminary micro results at discharge 04/27/24 05:53 Blood Culture - Preliminary Blood NO GROWTH AFTER 72 HOURS 04/25/24 16:14 Blood Culture - Preliminary Blood Gram positive cocci in chains Imaging CT chest abdomen pelvis: Attestation: I have reviewed the pertinent imaging results. Radiologist's impression: Chest: No thyroid nodules. No thoracic lymphadenopathy. The heart is normal in size. No pericardial effusion. Coronary artery calcifications and aortic valve and aortic and mitral annular calcifications. The thoracic aorta and pulmonary artery are normal in caliber. There is no focal airspace consolidation, pleural effusion, or pneumothorax. Trace dependent and bibasilar linear atelectatic changes. Subpleural 7 millimeter pulmonary nodule in the left lower lobe. No emphysematous or fibrotic changes. The airways are clear. Abdomen/pelvis: Well-circumscribed low-density left hepatic lesion measuring 1.7 centimeters, incompletely characterized on this exam, but likely a simple cyst. The gallbladder and biliary system are unremarkable. The spleen is unremarkable. The pancreas is without acute abnormality. Faint region of decreased attenuation in the pancreatic head/uncinate process (series number 2, image 108) measuring approximately 1.8 centimeters, incompletely characterized on this exam. No adrenal nodules. The kidneys are atrophic. Exophytic low-density lesion in the left kidney measuring approximately 1.6 centimeters (image 101), incompletely characterized on this exam. No renal calculi or hydroureteronephrosis. The uterus is unremarkable in appearance. No suspicious adnexal lesions. Moderate sized hiatal hernia. No evidence of bowel obstruction. There is questionable mild diffuse circumferential wall thickening of the rectum, which can be seen with proctitis; otherwise, no evidence of bowel inflammation throughout the remainder of the exam. No free fluid or free air. No abdominopelvic lymphadenopathy. No abdominal aortic aneurysm. Moderate calcific atherosclerosis of the aortoiliac system and its branches. Periuterine vascular calcifications. Pelvic phleboliths. Soft tissue/musculoskeletal: Soft tissues are without acute abnormality. Tiny fat containing umbilical hernia. No acute fracture or malalignment. Multilevel degenerative changes of the spine. No suspicious osseous lesions. Impression: 1. Questionable mild circumferential wall thickening of the rectum, which can be seen with proctitis; otherwise, no evidence of bowel inflammation throughout the remainder of the exam. 2. No free fluid or free air. 3. No CT evidence of an acute process involving the thorax. 4. Faint region of decreased attenuation in the pancreatic head/uncinate process (series number 2, image 108) measuring approximately 1.8 centimeters, and an exophytic low-density lesion in the left kidney measuring approximately 1.6 centimeters, both incompletely characterized on this exam. Recommend correlation with prior imaging if available; otherwise, recommend outpatient CT with pancreatic/renal protocol for further assessment. 5. Subpleural 7 millimeter pulmonary nodule in the left lower lobe, to correlate with prior imaging if available; otherwise, recommend repeat CT chest in 6-12 months. Right shoulder x-ray: Attestation: I have reviewed the pertinent imaging results. Radiologist's impression: No acute fracture or dislocation. Degenerative change of the AC and less so glenohumeral joints. IMPRESSION: Degenerative change right shoulder. No acute fracture or dislocation. Discharge Plan Discharge Disposition: [facility] Discharge Location: [facility] Date of Admission: 04/25/24 18:31 Attending Provider on Discharge: Emmy Jameson Primary Care Provider: Camilo Dorman Condition: Improved Anticipated Discharge Date/Time: 04/30/24 10:25 Discharge Medications: New amoxicillin-pot clavulanate 875-125 mg Tablet 1 tab PO BIDWM 6 Days Qty: 12 0RF lidocaine 5 % Adhesive Patch,Medicated 1 patch transdermal Q24H Qty: 15 0RF Rx Instructions: Apply to right posterior shoulder acetaminophen 325 mg Tablet 650 mg PO Q6H PRN (Reason: pain) Qty: 90 0RF Continued lisinopril 20 mg tablet 20 mg PO DAILY atenolol 50 mg tablet 50 mg PO DAILY Discharge Orders: Discharge Order (Routine); Ordered 04/30/24 Ordered By: Emmy Jameson Additional Instructions: Augmentin twice daily x5 days to complete antibiotic course for shigella urinary tract infection, bacteremia with preliminary Gram-positive cocci in chains. Awaiting final blood culture results and sensitivities which were sent to [place]. Right shoulder injury (had been crawling then lying on right side for extended period of time prior to hospitalization as unable to get up on own) - continue Tylenol as needed, lidocaine patch. Elevation RUE to reduce swelling. Cool compress/heat prn for comfort. Continue PT and OT. Avoid immobilization to reduce risk for frozen shoulder syndrome. Consider further imaging, repeat evaluation if new or worsening symptoms or no resolve. Activity Level: Activity as Tolerated Discharge Diet: Regular Follow Up Appointments: Camilo Dorman MD [Primary Care Provider] - Forms: payworks Info Instructions Discharge Comments: Will need outpatient follow-up with PCP, Dr. Dorman, for follow-up incidental findings of pancreas and lungs on CT - recommending CT with pancreatic/renal protocol following discharge as well as repeat CT chest in 6-12 months Admit to: SNF Discharge Potential: Good Length of Stay: <30 days Can use facility standing orders?: Yes Code Status: DNR/DNI Rehab Potential: Good Therapy: Physical Therapy and Occupational Therapy Therapy Orders: Evaluate and Treat Therapy Orders Additional Information: Continue to work on ROM/strength RUE. Avoid immobilization Oxygen: No Urinary Catheter: No Orders are good >30 days: No Signature: VALE No, PA-C [place] Hospitalist
--- NOTE | 2024-04-30 12:05 | PC.SOCIAL ---
Addendum entered by LUIS FERNANDO Damico 04/30/24 13:38: PAS completed PAS#[id number]. Called pt's dtr regarding transport, Latrice [phone]. Left message requesting a call back. interior surface insulation worker to follow up as needed. [facility] is accepting pt for admit today before 3:00pm to private room. Addendum entered by EMILIANO Carreon 04/30/24 12:15: Discharge planning: Pt was negative for COVID and this worker sent the results to Renita at [facility] via secure email. Social work to follow-up as needed. Original Note: Discharge planning: interior surface insulation worker sent updated hospitalist progress notes and updated PT/OT progress notes to [facility] this morning. They are still assessing for placement. Pt did have a COVID test done this morning, which [facility] is requiring before admission. Pt's daughter Lexy is the main contact for the pt and will be able to help with setting up transportation for the pt, either from her or another family member, when she is ready for discharge. Social work to follow-up as needed.
--- NOTE | 2024-04-30 15:03 | PC.NURSE ---
shift note: nurse to nurse given to [address] [place] [address] via phone. IV dc'd intact rt FA. Belongings reviewed and sent with pt at dc. Orders reviewed and [facility] home packet sent with pt at ma.
== END 2024-04-30 01:30 | DRG 371 ==
LOC: ED 17:56 → MEDSURG 18:02
PROVIDERS: Physician Assistant; Admitting Provider Internal Medicine; Emergency Provider Family Medicine; PCP Family Medicine; Visit Provider Internal Medicine
DX: A03.8 Other shigellosis (principal); A40.8 Other streptococcal sepsis; N39.0 Urinary tract infection, site not specified; N17.9 Acute kidney failure, unspecified; M62.82 Rhabdomyolysis; K51.90 Ulcerative colitis, unspecified, without complications; I24.89 Other forms of acute ischemic heart disease; E87.21 Acute metabolic acidosis; Z16.24 Resistance to multiple antibiotics; I10 Essential (primary) hypertension; D69.6 Thrombocytopenia, unspecified; R74.01 Elevation of levels of liver transaminase levels; E66.3 Overweight; M25.511 Pain in right shoulder; M25.561 Pain in right knee; R91.1 Solitary pulmonary nodule; D72.829 Elevated white blood cell count, unspecified; R93.5 Abnormal findings on diagnostic imaging of other abdominal regions, including retroperitoneum; E78.5 Hyperlipidemia, unspecified; Z68.29 Body mass index [BMI] 29.0-29.9, adult
CPT/HCPCS: 36415; 71250; 73030; 74176; 80048; 80061; 80076; 81001; 82550; 82803; 83605; 83735; 83880; 84100; 84443; 84484; 85025; 85651; 86140; 87040; 87077; 87086; 87147; 87186; 87631; 87635; 93005; 93306; 94761; 97110; 97116; 97162; 97165; 97530; 97535; 99285; A9270; J2543; J3372; J7030

== ENCOUNTER 2024-05-15 13:39 | Outpatient (CLI) | payer MEDICARE, BC, SELFPAY ==
--- NOTE | 2024-05-15 14:00 | CRLHL7_ITS ---
For Patients: As a result of the 21st Century Cures Act, medical imaging exams and procedure reports are released immediately into your electronic medical record. You may view this report before your referring provider. If you have questions, please contact your health care provider. CLINICAL INFORMATION: Indeterminate pancreatic and renal lesions. TECHNIQUE: Contrast-enhanced CT of the abdomen and pelvis was obtained in arterial, venous, and delayed phases. Coronal and sagittal reformatted images were obtained. Contrast: 100 mL of Isovue 370 intravenous contrast was injected uneventfully prior to image acquisition. Radiation Dose Estimate (Total Exam DLP): 1522 mGy-cm. COMPARISON: CT chest, abdomen, and pelvis 04/25/2024. FINDINGS: Lower Chest: Lung bases: Mild bibasilar dependent atelectatic changes. Stable 7 mm pleural based left lower lobe pulmonary nodule. No focal airspace opacities or pleural effusions. Heart/Pericardium: Scattered atherosclerotic calcifications. Heart normal in size. No pericardial effusion. Abdomen/Pelvis: Liver: Non cirrhotic morphology. 1.6 cm left hepatic lobe cyst. Gallbladder: Unremarkable. Spleen: Unremarkable. Adrenal glands: Unremarkable. Kidneys: 1.4 cm left renal cyst. Kidneys enhance symmetrically without hydronephrosis. No suspicious enhancing renal lesions. 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 Lymph nodes: No retroperitoneal, mesenteric, inguinal, or pelvic adenopathy by CT criteria. Vascular: Abdominal aorta normal in caliber. Bowel: No bowel obstruction. Normal caliber appendix in the right lower quadrant. Urinary bladder: Limited evaluation due to underdistention. No gross pathology. Reproductive structures: Enhancing 3.2 CM soft tissue nodule in the inferior left uterus may reflect fibroid. No abdominal/pelvis ascites or free intraperitoneal air. Musculoskeletal: Visualized osseous structures demonstrate diffuse degenerative changes. IMPRESSION: 1. 1 cm low attenuation lesion at the pancreatic head/uncinate process may represent entity such as side branch IPMN, however may also reflect volume averaging due to adjacent large duodenal diverticulum. Recommend repeat CT evaluation in 6 months to assure stability. 2. Benign-appearing 1.4 cm left renal cyst. Please note that all CT scans at this facility use dose modulation, iterative reconstruction, and/or weight-based dosing when appropriate to reduce radiation dose to as low as reasonably achievable. Dictated by Joe Recinos,MD @ 05/16/2024 12:45:59 PM (Electronically Signed)
== END 2024-05-15 13:40 | disposition home or self-care (01) ==
LOC: CT 13:42
PROVIDERS: PCP Family Medicine; Visit Provider Family Medicine
DX: K86.9 Disease of pancreas, unspecified (principal); N28.9 Disorder of kidney and ureter, unspecified
CPT/HCPCS: 74177; Q9967